=== PATIENT | male | born 1960 | race Hispanic/Latino ===

== ENCOUNTER 2019-04-12 11:01 | Inpatient (IN) | payer OTHER ==
[~2019-04-12] VITALS: Ht 152.4 cm; Wt 131.5 kg
[~2019-04-12 11:01] MED LIST: ASPI-555 PO; BISA5TAB12 PO; CARV12.511 PO; FURO-151 PO; INSU10VI3 SQ; LEVO25TA9 PO; LISI10TA7 PO; LORA10CA9 PO; TRAZ-185 PO; ZARO5 PO
[2019-04-12 11:31] LABS: BASOPHILS % (AUTO) 0.4 % (0.0-5.0); EOSINOPHILS % (AUTO) 0.5 % (0.0-8.0); LYMPHOCYTES % (AUTO) 3.2 % (21.0-51.0); MEAN CORPUSCULAR HGB CONC 33.9 g/dL (32.0-36.0); MEAN CORPUSCULAR VOLUME 88.6 fL (79-99); MONOCYTES % (AUTO) 5.6 % (3.0-13.0); NEUTROPHILS % (AUTO) 90.3 % (40.0-77.0); NUCLEATED RED BLOOD CELLS 0.1 % (0.0-0.19); PLATELET COUNT (AUTO) 251 K/uL (130-400); RED BLOOD CELL COUNT(AUTO) 3.16 MIL/uL (4.50-6.20); RED CELL DISTRIBUTION WIDTH 16.1 % (11.0-15.5); WHITE BLOOD COUNT (AUTO) 10.5 K/uL (4.8-10.8)
[2019-04-12] MEDS ORDERED: LACTATED RINGERS 1000ML 1,000 ML IV ONE (11:32)
[2019-04-12] MEDS ORDERED: ZOSYN 3.375GM+NS 50ML 50 ML IV ONE (11:32)
[2019-04-12 11:47] LABS: ALBUMIN 3.1 g/dL (3.5-5.0); BILIRUBIN,TOTAL 0.6 mg/dL (0.2-1.0); CREATININE 2.2 mg/dL (0.5-1.5); TOTAL PROTEIN, SERUM 8.3 g/dL (6.0-8.3)
[2019-04-12 11:48] LABS: POTASSIUM 6.1 mmol/L (3.5-5.1)
[2019-04-12 11:59] LABS: APPEARANCE,URINE Clear (CLEAR); BILIRUBIN,URINE Negative (NEGATIVE); COLOR,URINE Yellow (YELLOW); GLUCOSE, URINE (UA) 250 mg/dL (NEGATIVE); KETONES,URINE Negative (NEGATIVE); LEUKOCYTE ESTERASE ,URINE Trace (NEGATIVE); NITRATE,URINE Negative (NEGATIVE); OCCULT BLOOD,URINE Trace (NEGATIVE); PH,URINE 5.5 (5.0-8.0); PROTEIN,URINE >=1000 mg/dL (NEGATIVE); UROBILINOGEN,URINE 0.2 mg/dL (0.2-1.0)
[2019-04-12 12:10] LABS: PARTIAL THROMBOPLASTIN TIME 28.5 SEC (26.3-35.5); PROTHROMBIN TIME 10.5 SEC (9.6-11.6)
[2019-04-12 12:14] LABS: RBC,URINE 0-1 /HPF (0-1)
[2019-04-12 12:15] LABS: BACTERIA,URINE Few /HPF (None Seen)
[2019-04-12 12:16] LABS: SQUAMOUS EPITHELIAL CELL,UR 0-2 /HPF (0-2)
[2019-04-12 12:24] LABS: CREATINE KINASE, TOTAL 89 U/L (21-232); MYOGLOBIN 95 ng/mL (10-92); TROPONIN I < 0.04 ng/mL (0.00-0.06)
[2019-04-12] MEDS ORDERED: ONDANSETRON HCL 4 MG/2 ML VIAL IV PRN (15:00)
[2019-04-12] MEDS ORDERED: LACTULOSE 20 GM/30 ML UDCUP PO PRN (15:00)
[2019-04-12] MEDS ORDERED: ACETAMINOPHEN 325 MG TAB PO PRN (15:00)
[2019-04-12] MEDS ORDERED: SODIUM POLYSTYRENE SULFONATE 15 GM/60 ML ML ONE (15:20)
[2019-04-12] MEDS ORDERED: VANCOMYCIN PROTOCOL PER PHARMACY IV PRN (16:00)
[2019-04-12] MEDS: INSULIN HUMULIN R 100 UNIT/ML 3ML SQ SCH ×2 (16:30→21:00)
[2019-04-12] MEDS ORDERED: VANCOMYCIN 2 GM in SODIUM CHLORIDE 0.9% 500ML 500 ML IV ONE (17:00)
[2019-04-12] MEDS ORDERED: SODIUM POLYSTYRENE SULFONATE 15 GM/60 ML ML RC ONE (17:50)
[2019-04-12 18:25] VITALS: BP 154/65
--- NOTE | 2019-04-12 19:22 | NUR ---
INFECTIOUS DISEASE Dr. Raphael was called and notified. Addendum: 04/12/19 at 2004 by SHELBY PHELPS RN RN Dr. Raphael was called and notified of consult.
--- NOTE | 2019-04-12 20:06 | NUR ---
WOUND CARE AND WOUND PICTURES Took pictures of wounds and in chart. Dressing change done as ordered; patient tolerated well. Minimal serous dressing to ulcers in soles.
--- NOTE | 2019-04-12 20:06 | NUR ---
PODIATRY CONSULT Dr. Martinez was called and notified of consult. Gave orders for wound care and stated he will see patient tomorrow.
[2019-04-12] MEDS ORDERED: SODIUM CHLORIDE 0.9% 500ML 500 ML IV ONE (20:28)
[2019-04-12] MEDS: ZOSYN 3.375GM+NS 50ML 50 ML IV SCH (20:43)
[2019-04-12] MEDS: INSULIN GLARGINE 100 UNITS/ML 10 ML VIAL SQ SCH (20:46)
[2019-04-12 20:50] VITALS: BP 145/59
[2019-04-12] MEDS: HYDROMORPHONE 1 MG/1 ML AMP IVP PRN (20:59)
[2019-04-12] MEDS ORDERED: FAMOTIDINE 20MG TAB 20 MG TAB PO SCH (21:00)
[2019-04-12] MEDS ORDERED: SODIUM POLYSTYRENE SULFONATE 15 GM/60 ML ML PO SCH (21:15)
[2019-04-12 22:37] LABS: CREATININE 2.1 mg/dL (0.5-1.5); POTASSIUM 4.9 mmol/L (3.5-5.1); TROPONIN I 0.18 ng/mL (0.00-0.06)
[2019-04-12 23:19] VITALS: BP 118/62
[2019-04-13 03:25] VITALS: BP 123/64
[2019-04-13 05:10] LABS: BASOPHILS % (AUTO) 0.6 % (0.0-5.0); EOSINOPHILS % (AUTO) 0.8 % (0.0-8.0); HEMATOCRIT 25.9 % (42-54); LYMPHOCYTES % (AUTO) 7.5 % (21.0-51.0); MEAN CORPUSCULAR HEMOGLOBIN 30.4 pg (27.0-33.0); MEAN CORPUSCULAR HGB CONC 34.3 g/dL (32.0-36.0); MEAN CORPUSCULAR VOLUME 88.7 fL (79-99); MONOCYTES % (AUTO) 9.4 % (3.0-13.0); NEUTROPHILS % (AUTO) 81.7 % (40.0-77.0); PLATELET COUNT (AUTO) 235 K/uL (130-400); RED BLOOD CELL COUNT(AUTO) 2.92 MIL/uL (4.50-6.20); RED CELL DISTRIBUTION WIDTH 16.6 % (11.0-15.5); WHITE BLOOD COUNT (AUTO) 6.6 K/uL (4.8-10.8)
[2019-04-13 05:21] LABS: CREATININE 2.2 mg/dL (0.5-1.5)
[2019-04-13] MEDS: VANCOMYCIN 500MG+NS 100ML 100 ML IV SCH ×2 (06:03→17:28)
[2019-04-13] MEDS: INSULIN HUMULIN R 100 UNIT/ML 3ML SQ SCH ×4 (06:04→22:35)
[2019-04-13] MEDS: INSULIN GLARGINE 100 UNITS/ML 10 ML VIAL SQ SCH ×2 (07:30→22:34)
[2019-04-13 08:00] VITALS: BP 139/80
[2019-04-13] MEDS ORDERED: FUROSEMIDE 40 MG TABLET PO SCH (09:00)
[2019-04-13] MEDS ORDERED: VANCOMYCIN PROTOCOL PER PHARMACY IV SCH (09:15)
[2019-04-13] MEDS: ZOSYN 3.375GM+NS 50ML 50 ML IV SCH ×3 (10:18→22:12)
[2019-04-13] MEDS: FAMOTIDINE 20MG TAB 20 MG TAB PO SCH (10:25)
[2019-04-13] MEDS: ENOXAPARIN SODIUM 30 MG/0.3 ML SQ SCH (10:26)
--- NOTE | 2019-04-13 11:00 | NUR ---
INITIAL MET W PT FOR DISCHARGE PLANNING- PT IS [place]OX[place], LIVES WITH SPOUSE WALLACE, HAS HAD WOUND TO FEET SINCE 2016 THAT HIS SPOUSE HAS BEEN LOOKING AFTER WITH THE HELP OF [facility], ETC. RECENTLY AT [facility] X SEVERAL WEEKS FOR ABX. PT STATES HAS LOST TOES AND DOES NOT WANT TO LOSE ANY MORE. PT HAS A CANE, WALKER AND WHEELCHAIR. DISPOSITION IS UNCERTAIN- WAITING ON IMAGING TO KNOW IF PT HAS OSTEOMYELITIS AND/OR NEEDS MORE SURGICAL DEBRIDEMENT. WILL FOLLOW UP . PT IS AGREEABLE TO GO TO ANY AFTERCARE RECOMMENDED, JUST WANTS HIS FEET TO HEAL UP Addendum: 04/14/19 at 2114 by MAYE HUDSON RN Amended: Links added.
[2019-04-13 11:53] VITALS: BP_SYST 139; BP_SYST 157; BP_DIAS 106; BP_DIAS 112
[2019-04-13 11:57] VITALS: BP 140/76
[2019-04-13] MEDS: CADEXOMER IODINE 40 GM GEL TP SCH ×2 (15:45→21:00)
[2019-04-13 16:00] VITALS: BP 152/76
[2019-04-13 20:00] VITALS: BP 138/86
[2019-04-13] MEDS ORDERED: TEMAZEPAM 7.5 MG CAPSULE PO ONE (21:54)
[2019-04-13] MEDS ORDERED: TEMAZEPAM 7.5 MG CAPSULE PO SCH (22:00)
[2019-04-14 00:01] VITALS: BP 148/88
[2019-04-14 04:00] VITALS: BP 141/90
[2019-04-14 05:08] LABS: BASOPHILS % (AUTO) 0.7 % (0.0-5.0); EOSINOPHILS % (AUTO) 4.6 % (0.0-8.0); HEMATOCRIT 24.6 % (42-54); LYMPHOCYTES % (AUTO) 15.6 % (21.0-51.0); MEAN CORPUSCULAR HEMOGLOBIN 30.3 pg (27.0-33.0); MEAN CORPUSCULAR VOLUME 89.2 fL (79-99); MONOCYTES % (AUTO) 12.8 % (3.0-13.0); NEUTROPHILS % (AUTO) 66.3 % (40.0-77.0); PLATELET COUNT (AUTO) 211 K/uL (130-400); RED BLOOD CELL COUNT(AUTO) 2.76 MIL/uL (4.50-6.20); RED CELL DISTRIBUTION WIDTH 16.3 % (11.0-15.5); WHITE BLOOD COUNT (AUTO) 5.1 K/uL (4.8-10.8)
[2019-04-14 05:19] LABS: CREATININE 2.2 mg/dL (0.5-1.5); POTASSIUM 4.4 mmol/L (3.5-5.1)
[2019-04-14] MEDS: VANCOMYCIN 500MG+NS 100ML 100 ML IV SCH ×2 (05:53→18:19)
[2019-04-14] MEDS: INSULIN HUMULIN R 100 UNIT/ML 3ML SQ SCH ×4 (06:40→21:00)
[2019-04-14 08:00] VITALS: BP 136/82
[2019-04-14] MEDS ORDERED: BISACODYL 5 MG TABLET.DR PO PRN (08:30)
[2019-04-14] MEDS ORDERED: FUROSEMIDE 10 MG/ML 2ML VIAL IV SCH (08:30)
[2019-04-14] MEDS: ASPIRIN 81 MG EC TAB PO SCH (08:50)
[2019-04-14] MEDS: LORATADINE 10 MG TABLET PO SCH (08:51)
[2019-04-14] MEDS: FUROSEMIDE 40 MG TABLET PO SCH ×2 (08:51→21:18)
[2019-04-14] MEDS: ENOXAPARIN SODIUM 30 MG/0.3 ML SQ SCH (08:55)
[2019-04-14] MEDS: ZOSYN 3.375GM+NS 50ML 50 ML IV SCH (08:57)
[2019-04-14] MEDS: CARVEDILOL 12.5 MG TABLET PO SCH ×2 (09:00→21:17)
[2019-04-14] MEDS: FAMOTIDINE 20MG TAB 20 MG TAB PO SCH (09:00)
[2019-04-14] MEDS: LISINOPRIL 10 MG TABLET PO SCH (09:00)
[2019-04-14] MEDS: INSULIN GLARGINE 100 UNITS/ML 10 ML VIAL SQ SCH ×2 (09:11→22:15)
--- NOTE | 2019-04-14 10:00 | NUR ---
WOUND CARE TO FEET RENDERED, IODOSORB APPLIED TO OPEN AREAS AND COVERED. NO DRAINAGE NOTED TO RT.FOOT AND SM AMT OF DISCHARGE CLEANED LT ONE WITH NS AND THEN APPLIED OINT.
[2019-04-14 12:00] VITALS: BP 130/79
[2019-04-14 16:00] VITALS: BP 151/85
[2019-04-14 20:00] VITALS: BP 140/82
[2019-04-14] MEDS ORDERED: TRAZODONE HCL 50 MG TAB PO SCH (21:00)
[2019-04-14] MEDS: HYDROMORPHONE 1 MG/1 ML AMP IVP PRN (21:18)
[2019-04-15] VITALS: BP 139/76
[2019-04-15] MEDS: HYDROMORPHONE 1 MG/1 ML AMP IVP PRN (03:12)
[2019-04-15 04:00] VITALS: BP 118/67
[2019-04-15] MEDS: VANCOMYCIN 500MG+NS 100ML 100 ML IV SCH (05:29)
[2019-04-15] MEDS: INSULIN HUMULIN R 100 UNIT/ML 3ML SQ SCH ×3 (05:47→16:28)
[2019-04-15] MEDS: INSULIN GLARGINE 100 UNITS/ML 10 ML VIAL SQ SCH (05:49)
[2019-04-15 06:01] LABS: BASOPHILS % (AUTO) 0.6 % (0.0-5.0); EOSINOPHILS % (AUTO) 4.5 % (0.0-8.0); HEMATOCRIT 25.7 % (42-54); LYMPHOCYTES % (AUTO) 18.4 % (21.0-51.0); MEAN CORPUSCULAR HEMOGLOBIN 29.6 pg (27.0-33.0); MEAN CORPUSCULAR HGB CONC 33.3 g/dL (32.0-36.0); MEAN CORPUSCULAR VOLUME 88.9 fL (79-99); MONOCYTES % (AUTO) 10.5 % (3.0-13.0); PLATELET COUNT (AUTO) 246 K/uL (130-400); RED BLOOD CELL COUNT(AUTO) 2.89 MIL/uL (4.50-6.20); WHITE BLOOD COUNT (AUTO) 4.7 K/uL (4.8-10.8)
[2019-04-15 06:12] LABS: CREATININE 2.2 mg/dL (0.5-1.5); POTASSIUM 4.8 mmol/L (3.5-5.1)
[2019-04-15] MEDS ORDERED: LEVOTHYROXINE 25 MCG TABLET PO SCH (08:00)
[2019-04-15 08:02] VITALS: BP 124/69
[2019-04-15] MEDS ORDERED: METOLAZONE 2.5 MG TABLET PO SCH (09:00)
[2019-04-15] MEDS: ZOSYN 3.375GM+NS 50ML 50 ML IV SCH (09:28)
[2019-04-15] MEDS: ASPIRIN 81 MG EC TAB PO SCH (09:30)
[2019-04-15] MEDS: FUROSEMIDE 40 MG TABLET PO SCH (09:32)
[2019-04-15] MEDS: CARVEDILOL 12.5 MG TABLET PO SCH (09:32)
[2019-04-15] MEDS: LORATADINE 10 MG TABLET PO SCH (09:33)
[2019-04-15] MEDS: FAMOTIDINE 20MG TAB 20 MG TAB PO SCH (09:33)
[2019-04-15] MEDS: LISINOPRIL 10 MG TABLET PO SCH (09:33)
[2019-04-15] MEDS: ENOXAPARIN SODIUM 30 MG/0.3 ML SQ SCH (09:35)
[2019-04-15 11:54] VITALS: BP 112/72
[2019-04-15 16:00] VITALS: BP 142/82
--- NOTE | 2019-04-15 18:42 | NUR ---
PT D/C HOME USING TEACH BACK TECHNIQUE RE; PLEASE FOLLOW UP WITH DR. PAIGE AT THE [facility] ON SATURDAY APRIL 20, 2019 @ 9:00AM. FOLLOW UP WITH DR. VALLEJO IN 1 WEEK. CALL TO SET UP AN APPOINTMENT AT [phone]. FOLLOW UP WITH DR. DASILVA, KEEP APPOINTMENT YOU ALREADY HAVE AND FOLLOW UP INSTRUCTED. FINISH FULL COURSE OF ANTIBIOTIC THERAPY TO PREVENT SUPER INFECTION. CHANGE DRESSINGS DAILY WITH IODOSORB OINTMENT TO BILATERAL FOOT ULCERS THEN COVER WITH 4X4 GAUZE AND KERLIX. IV OUT INTACT, NO BLEEDING, AAOX3, IN NO DISTRESS, AT BEDSIDE DID WOUNDCARE USING TEACH BACK METHOD. OVERALL FAMILY AND PATIENT APPEAR VERY KNOWLEDGEABLE RE; WOUND CARE AND DRESSING CHANGES. STATES THEY HAVE CARED FOR HIM ALL THIS MONTHS.
== END 2019-04-15 18:45 | disposition home or self-care (01) | DRG 872 ==
LOC: EDH 11:01 → EDHIP 14:49 → 3DH 17:44
PROVIDERS: ADMIT Internal Medicine; ATTEND Internal Medicine
DX: A41.9 Sepsis, unspecified organism (principal); L03.116 Cellulitis of left lower limb; I13.0 Hypertensive heart and chronic kidney disease with heart failure and stage 1 through stage 4 chronic kidney disease, or unspecified chronic kidney disease; I50.42 Chronic combined systolic (congestive) and diastolic (congestive) heart failure; N17.9 Acute kidney failure, unspecified; Z68.43 Body mass index [BMI] 50.0-59.9, adult; E11.621 Type 2 diabetes mellitus with foot ulcer; L97.529 Non-pressure chronic ulcer of other part of left foot with unspecified severity; N18.9 Chronic kidney disease, unspecified; E11.22 Type 2 diabetes mellitus with diabetic chronic kidney disease; E78.5 Hyperlipidemia, unspecified; E11.65 Type 2 diabetes mellitus with hyperglycemia; E11.21 Type 2 diabetes mellitus with diabetic nephropathy; E03.9 Hypothyroidism, unspecified; D64.9 Anemia, unspecified; E11.610 Type 2 diabetes mellitus with diabetic neuropathic arthropathy; E11.628 Type 2 diabetes mellitus with other skin complications; E66.01 Morbid (severe) obesity due to excess calories; G47.33 Obstructive sleep apnea (adult) (pediatric); L97.519 Non-pressure chronic ulcer of other part of right foot with unspecified severity; Z89.432 Acquired absence of left foot; Z79.899 Other long term (current) drug therapy
CPT/HCPCS: 36415; 71045; 73718; 80048; 80053; 80202; 81001; 82550; 82948; 83605; 83874; 84132; 84145; 84484; 85025; 85610; 85730; 87040; 87088; 87804; 93005; 93970; G0378; J1170; J1650; J1815; J1940; J2543; J3370; J7040; J7120

== ENCOUNTER 2019-11-06 05:39 | Inpatient (IN) | payer OTHER, MEDICARE ==
[~2019-11-06] VITALS: Ht 175.3 cm; Wt 127.1 kg
[~2019-11-06 05:39] MED LIST changes: +ATOR20TA65 PO; +ERGO500014 PO; +HYDR-3420 PO; +Isosorbide Mono 30MG Tab Sr PO
[2019-11-06] MEDS ORDERED: ASPIRIN 325MG EC TAB 325 MG TABLET.DR PO ONE (06:12)
[2019-11-06] MEDS ORDERED: FUROSEMIDE 10 MG/ML 4ML VIAL ONE (06:12)
[2019-11-06] MEDS ORDERED: NITROGLYCERIN 1GM/1 INCH PACKET TD ONE (06:13)
[2019-11-06 06:17] LABS: BASOPHILS % (AUTO) 0.4 % (0.0-5.0); HEMATOCRIT 30.7 % (42-54); LYMPHOCYTES % (AUTO) 23.6 % (21.0-51.0); MEAN CORPUSCULAR HEMOGLOBIN 27.9 pg (27.0-33.0); MEAN CORPUSCULAR HGB CONC 31.9 g/dL (32.0-36.0); MEAN CORPUSCULAR VOLUME 87.5 fL (79-99); MONOCYTES % (AUTO) 9.5 % (3.0-13.0); NEUTROPHILS % (AUTO) 59.2 % (40.0-77.0); PLATELET COUNT (AUTO) 239 K/uL (130-400); RED BLOOD CELL COUNT(AUTO) 3.51 MIL/uL (4.50-6.20); RED CELL DISTRIBUTION WIDTH 12.7 % (11.0-15.5)
[2019-11-06 06:18] LABS: APPEARANCE,URINE Clear (CLEAR); BILIRUBIN,URINE Negative (NEGATIVE); COLOR,URINE Yellow (YELLOW); GLUCOSE, URINE (UA) Negative (NEGATIVE); KETONES,URINE Negative (NEGATIVE); LEUKOCYTE ESTERASE ,URINE Trace (NEGATIVE); NITRATE,URINE Negative (NEGATIVE); OCCULT BLOOD,URINE Negative (NEGATIVE); PROTEIN,URINE POS 2+ mg/dL (NEGATIVE)
[2019-11-06 06:26] LABS: RBC,URINE 0-1 /HPF (0-1)
[2019-11-06 06:27] LABS: BACTERIA,URINE Few /HPF (None Seen)
[2019-11-06 06:29] LABS: CREATININE 2.3 mg/dL (0.5-1.5); POTASSIUM 5.1 mmol/L (3.5-5.1)
[2019-11-06 06:32] LABS: INR 0.99 (0.85-1.15); PARTIAL THROMBOPLASTIN TIME 27.3 SEC (26.3-35.5); PROTHROMBIN TIME 10.7 SEC (9.6-11.6)
[2019-11-06 06:35] LABS: ALBUMIN 3.2 g/dL (3.5-5.0); BILIRUBIN,TOTAL 0.2 mg/dL (0.2-1.0); TOTAL PROTEIN, SERUM 8.3 g/dL (6.0-8.3)
[2019-11-06] MEDS ORDERED: SODIUM CHLORIDE 0.9% 1000ML 1,000 ML IV SCH (07:15)
[2019-11-06] MEDS: INSULIN R PO SS1 SQ SCH ×4 (07:30→21:05)
[2019-11-06] MEDS ORDERED: GLUCAGON 1MG KIT 1 MG ML IM PRN (07:30)
[2019-11-06] MEDS ORDERED: DEXTROSE 50%-WATER 50 ML DISP.SYRIN IV PRN (07:30)
[2019-11-06 07:49] LABS: B-TYPE NATRIURETIC PEPTIDE 1420 pg/mL (0-100)
[2019-11-06] MEDS: FUROSEMIDE 10 MG/ML 4ML VIAL IVP SCH ×2 (07:50→20:39)
[2019-11-06 08:15] VITALS: BP 150/77
[2019-11-06] MEDS ORDERED: FAMO40TA7 PO (08:23)
[2019-11-06] MEDS ORDERED: [UNRECOGNIZED DRUG - CODE] PO (08:23)
[2019-11-06 11:00] VITALS: BP 121/66
--- NOTE | 2019-11-06 14:41 | NUR ---
INITAL MET W PATIENT AT BEDSIDE, STATFaustina LIVES WITH SPOUSE VESTA IVORY, WHO WILL [facility] TRANSPORT HOME. USES A CANE, A WLKER AND A WHEELCHAIR; STATES HAS PROVIDER SERVICES 20+ HRS/WK; LAST SAW PMD IN JULY, FOLLOW UP APPT SCHEDULED FOR AM. Addendum: 11/06/19 at 1443 by MAYE HUDSON RN CM Amended: Links added.
[2019-11-06 15:30] VITALS: BP 136/80
[2019-11-06] MEDS: ACETAMINOPHEN 325 MG TAB PO PRN (17:53)
[2019-11-06] MEDS ORDERED: NITROGLYCERIN 0.4 MG SL TAB SL PRN (18:00)
[2019-11-06] MEDS ORDERED: BISACODYL 5 MG TABLET.DR PO PRN (18:00)
[2019-11-06] MEDS ORDERED: LACTULOSE 20 GM/30 ML UDCUP PO PRN (18:00)
[2019-11-06] MEDS ORDERED: ONDANSETRON HCL 4 MG/2 ML VIAL IV PRN (18:00)
[2019-11-06] MEDS ORDERED: ACETAMINOPHEN 325 MG TAB PO PRN (18:00)
[2019-11-06] MEDS ORDERED: PHARMACY COMMUNICATION MISC SCH (18:15)
[2019-11-06 19:54] VITALS: BP 137/80
[2019-11-06] MEDS: TRAZODONE HCL 50 MG TAB PO SCH (20:38)
[2019-11-06] MEDS: CARVEDILOL 12.5 MG TABLET PO SCH (20:40)
[2019-11-06] MEDS ORDERED: CARVEDILOL 12.5 MG TABLET PO SCH (21:00)
[2019-11-06 23:39] VITALS: BP 116/69
[2019-11-07] VITALS (7 sets, daily range): BP systolic 115–139; BP diastolic 61–85
[2019-11-07 04:10] LABS: BASOPHILS % (AUTO) 0.5 % (0.0-5.0); EOSINOPHILS % (AUTO) 6.1 % (0.0-8.0); HEMATOCRIT 29.2 % (42-54); LYMPHOCYTES % (AUTO) 23.7 % (21.0-51.0); MEAN CORPUSCULAR HEMOGLOBIN 27.8 pg (27.0-33.0); MEAN CORPUSCULAR HGB CONC 31.8 g/dL (32.0-36.0); MEAN CORPUSCULAR VOLUME 87.4 fL (79-99); MONOCYTES % (AUTO) 10.5 % (3.0-13.0); NEUTROPHILS % (AUTO) 58.9 % (40.0-77.0); PLATELET COUNT (AUTO) 225 K/uL (130-400); RED BLOOD CELL COUNT(AUTO) 3.34 MIL/uL (4.50-6.20); RED CELL DISTRIBUTION WIDTH 12.4 % (11.0-15.5); WHITE BLOOD COUNT (AUTO) 5.7 K/uL (4.8-10.8)
[2019-11-07 04:27] LABS: INR 1.02 (0.85-1.15); PARTIAL THROMBOPLASTIN TIME 28.2 SEC (26.3-35.5)
[2019-11-07 04:35] LABS: ALBUMIN 2.9 g/dL (3.5-5.0); BILIRUBIN,TOTAL 0.3 mg/dL (0.2-1.0); CREATININE 2.3 mg/dL (0.5-1.5); POTASSIUM 4.9 mmol/L (3.5-5.1); TOTAL PROTEIN, SERUM 7.6 g/dL (6.0-8.3)
[2019-11-07] MEDS: INSULIN R PO SS1 SQ SCH ×4 (05:40→20:29)
[2019-11-07] MEDS: LEVOTHYROXINE 25 MCG TABLET PO SCH (05:40)
[2019-11-07] MEDS: INSULIN HUMULIN 70/30 100 UNIT/ML 3ML SQ SCH (08:18)
[2019-11-07] MEDS ORDERED: LISINOPRIL 10 MG TABLET PO SCH (09:00)
[2019-11-07] MEDS: ENOXAPARIN SODIUM 30 MG/0.3 ML SQ SCH (09:02)
[2019-11-07] MEDS: FAMOTIDINE 20MG TAB 20 MG TAB PO SCH (09:03)
[2019-11-07] MEDS: METOLAZONE 2.5 MG TABLET PO SCH (09:03)
[2019-11-07] MEDS: ATORVASTATIN CALCIUM 20 MG TABLET PO SCH (09:03)
[2019-11-07] MEDS: ASPIRIN 81 MG EC TAB PO SCH (09:03)
[2019-11-07] MEDS: FUROSEMIDE 10 MG/ML 4ML VIAL IVP SCH ×2 (09:03→20:31)
[2019-11-07] MEDS: LORATADINE 10 MG TABLET PO SCH (09:04)
[2019-11-07] MEDS: CARVEDILOL 12.5 MG TABLET PO SCH ×2 (09:04→20:30)
[2019-11-07] MEDS: LOSARTAN 50 MG TABLET PO SCH (09:04)
--- NOTE | 2019-11-07 10:56 | NUR ---
WOUND CARE PICTURES TAKEN AND WOUND CARE PREFORMED ON BOTH RIGHT AND LEFT PALM OF FEET, CLEANSED WITH STERILE WATER AND THEN BETADINE CAST PLACED , COVERED WITH 4X4 GAUZES THEN TAPED SECURELY. PICTURES TAKEN. DRESSING CHANGES BID.
--- NOTE | 2019-11-07 17:14 | NUR ---
1288 PATIENT SIGNED PARK LETTER, I FAXED PARK LETTER TO [phone] AND PLACED IN CHART UNDER CONSENT TAB.
[2019-11-07] MEDS: TRAZODONE HCL 50 MG TAB PO SCH (20:30)
--- NOTE | 2019-11-07 20:30 | NUR ---
MEDS SHIFT ASSESSMENT DONE, PLEASE REFER TO CHART. DUE MEDS ADMINISTERED, TOLERATED WELL. DRESSING CHANGED ON FEET. CLEANSED FEET ULCER WITH SALINE, PAT DRY, APPLIED MEDIHONEY THEN COVERED WITH GAUZE AND SECURED WITH TAPE. PT REFUSED KERLIX AROUND FEET. SCD'S RE-APPLIED TO BLE. KEPT RESTED AND COMFORTABLE WITH HOB ELEVATED. CALL LIGHT WITHIN REACH. WILL MONITOR PT. Addendum: 11/08/19 at 0017 by SEAN LANDIS RN RN Amended: Links added.
[2019-11-07] MEDS: HONEY 1 APPL/ML TUBE TP SCH (20:31)
--- NOTE | 2019-11-08 02:00 | NUR ---
ROUNDS PT RESTING WELL, FAIRLY ASLEEP. NO DISTRESS NOTED. KEPT RESTED AND COMFORTABLE IN BED. CALL LIGHT WITHIN REACH. WILL MONITOR PT.
[2019-11-08 04:00] VITALS: BP 147/52
[2019-11-08 04:46] LABS: BASOPHILS % (AUTO) 0.5 % (0.0-5.0); HEMATOCRIT 32.1 % (42-54); MEAN CORPUSCULAR HEMOGLOBIN 27.6 pg (27.0-33.0); MEAN CORPUSCULAR HGB CONC 31.2 g/dL (32.0-36.0); MEAN CORPUSCULAR VOLUME 88.7 fL (79-99); MONOCYTES % (AUTO) 9.7 % (3.0-13.0); NEUTROPHILS % (AUTO) 62.5 % (40.0-77.0); PLATELET COUNT (AUTO) 241 K/uL (130-400); RED BLOOD CELL COUNT(AUTO) 3.62 MIL/uL (4.50-6.20); RED CELL DISTRIBUTION WIDTH 12.4 % (11.0-15.5); WHITE BLOOD COUNT (AUTO) 6.4 K/uL (4.8-10.8)
[2019-11-08 05:06] LABS: BILIRUBIN,TOTAL 0.3 mg/dL (0.2-1.0); CREATININE 2.6 mg/dL (0.5-1.5); POTASSIUM 5.3 mmol/L (3.5-5.1)
[2019-11-08] MEDS: LEVOTHYROXINE 25 MCG TABLET PO SCH (05:56)
--- NOTE | 2019-11-08 05:56 | NUR ---
MEDS AWAKENED PT FOR DUE MEDS. DENIES ANY CONCERNS AT THIS TIME. MEDICATED, TOLERATED WELL. FOR MORE CARE.
[2019-11-08] MEDS: INSULIN R PO SS1 SQ SCH ×4 (06:13→23:46)
[2019-11-08 07:28] VITALS: BP 119/72
[2019-11-08] MEDS: INSULIN HUMULIN 70/30 100 UNIT/ML 3ML SQ SCH (08:01)
[2019-11-08] MEDS: HONEY 1 APPL/ML TUBE TP SCH ×2 (09:00→21:00)
[2019-11-08] MEDS: ENOXAPARIN SODIUM 30 MG/0.3 ML SQ SCH (09:00)
--- NOTE | 2019-11-08 09:06 | NUR ---
PLAN OF CARE discussed with dr. Brown's PA and with RN Advised that AICD will be done tomorrow. Cannot be done today because patient is still orthopnic, cannot lie flat for procedure Vital signs reviewed, O2 sats are revieal on room air as > 95% Discussion with RN and CUSTOMS ENTRY WRITER- RN states patient has O2 off and on, uses when lying down. Asked for vital signs to be added to reflect oxygen use. PA lucien Brown states cannot go home and come back to have AICD because will need diuresis piror to procedure- out patient scheduled AICD not appropriate. call to Karen Case manage to advise of same. AICD for tomorrow Asked Addendum: 11/08/19 at 0910 by MAYE HUDSON RN Amended: Links added.
[2019-11-08] MEDS: LORATADINE 10 MG TABLET PO SCH (09:53)
[2019-11-08] MEDS: ASPIRIN 81 MG EC TAB PO SCH (09:53)
[2019-11-08] MEDS: FAMOTIDINE 20MG TAB 20 MG TAB PO SCH (09:53)
[2019-11-08] MEDS: LOSARTAN 50 MG TABLET PO SCH (09:54)
[2019-11-08] MEDS: CARVEDILOL 12.5 MG TABLET PO SCH ×2 (09:54→22:07)
[2019-11-08] MEDS: ATORVASTATIN CALCIUM 20 MG TABLET PO SCH (09:54)
[2019-11-08] MEDS: FUROSEMIDE 10 MG/ML 4ML VIAL IVP SCH ×2 (09:55→22:07)
[2019-11-08 10:47] VITALS: BP 104/66
--- NOTE | 2019-11-08 15:25 | NUR ---
1030 patient signed IM Letter, I faxed IM Letter to [phone] and placed in chart under consent tab.
[2019-11-08 15:40] VITALS: BP 113/62
[2019-11-08 19:41] VITALS: BP 112/55
[2019-11-08] MEDS: TRAZODONE HCL 50 MG TAB PO SCH (22:08)
[2019-11-08 23:27] VITALS: BP 109/60
[2019-11-09 03:23] VITALS: BP 110/69
[2019-11-09 04:18] LABS: BASOPHILS % (AUTO) 0.5 % (0.0-5.0); EOSINOPHILS % (AUTO) 5.2 % (0.0-8.0); HEMATOCRIT 30.5 % (42-54); LYMPHOCYTES % (AUTO) 18.2 % (21.0-51.0); MEAN CORPUSCULAR HEMOGLOBIN 28.1 pg (27.0-33.0); MEAN CORPUSCULAR HGB CONC 32.1 g/dL (32.0-36.0); MEAN CORPUSCULAR VOLUME 87.4 fL (79-99); MONOCYTES % (AUTO) 11.5 % (3.0-13.0); NEUTROPHILS % (AUTO) 64.3 % (40.0-77.0); PLATELET COUNT (AUTO) 235 K/uL (130-400); RED BLOOD CELL COUNT(AUTO) 3.49 MIL/uL (4.50-6.20); RED CELL DISTRIBUTION WIDTH 12.4 % (11.0-15.5); WHITE BLOOD COUNT (AUTO) 6.6 K/uL (4.8-10.8)
[2019-11-09 04:35] LABS: ALBUMIN 2.9 g/dL (3.5-5.0); BILIRUBIN,TOTAL 0.2 mg/dL (0.2-1.0); CREATININE 2.9 mg/dL (0.5-1.5); POTASSIUM 5.1 mmol/L (3.5-5.1); TOTAL PROTEIN, SERUM 7.7 g/dL (6.0-8.3)
[2019-11-09] MEDS: LEVOTHYROXINE 25 MCG TABLET PO SCH (06:26)
[2019-11-09] MEDS: INSULIN R PO SS1 SQ SCH ×4 (06:26→20:54)
[2019-11-09 07:48] VITALS: BP 124/75
[2019-11-09] MEDS: ASPIRIN 81 MG EC TAB PO SCH (09:52)
[2019-11-09] MEDS: ATORVASTATIN CALCIUM 20 MG TABLET PO SCH (09:52)
[2019-11-09] MEDS: LORATADINE 10 MG TABLET PO SCH (09:53)
[2019-11-09] MEDS: LOSARTAN 50 MG TABLET PO SCH (09:53)
[2019-11-09] MEDS: FAMOTIDINE 20MG TAB 20 MG TAB PO SCH (09:53)
[2019-11-09] MEDS: CARVEDILOL 12.5 MG TABLET PO SCH ×2 (09:53→20:54)
[2019-11-09] MEDS: ENOXAPARIN SODIUM 30 MG/0.3 ML SQ SCH (09:54)
[2019-11-09] MEDS: MILRINONE-D5W 20 MG/100 ML 100 ML IV SCH ×2 (10:24→21:52)
[2019-11-09] MEDS: HONEY 1 APPL/ML TUBE TP SCH ×2 (10:27→20:55)
[2019-11-09] MEDS: INSULIN HUMULIN 70/30 100 UNIT/ML 3ML SQ SCH (10:32)
[2019-11-09] MEDS ORDERED: VANCOMYCIN 1GM+NS 250ML 250 ML IV PRN (11:15)
[2019-11-09 11:16] VITALS: BP 130/74
[2019-11-09 15:30] VITALS: BP 97/66
[2019-11-09 20:00] VITALS: BP 94/58
[2019-11-09] MEDS: TRAZODONE HCL 50 MG TAB PO SCH (20:54)
[2019-11-10] VITALS (7 sets, daily range): BP systolic 82–131; BP diastolic 50–86
[2019-11-10 04:32] LABS: HEMATOCRIT 29.1 % (42-54); MEAN CORPUSCULAR HEMOGLOBIN 27.5 pg (27.0-33.0); MEAN CORPUSCULAR HGB CONC 31.6 g/dL (32.0-36.0); MEAN CORPUSCULAR VOLUME 86.9 fL (79-99); RED BLOOD CELL COUNT(AUTO) 3.35 MIL/uL (4.50-6.20); RED CELL DISTRIBUTION WIDTH 12.3 % (11.0-15.5); WHITE BLOOD COUNT (AUTO) 6.3 K/uL (4.8-10.8)
[2019-11-10 04:57] LABS: CREATININE 3.5 mg/dL (0.5-1.5)
[2019-11-10] MEDS: LEVOTHYROXINE 25 MCG TABLET PO SCH (05:17)
[2019-11-10] MEDS: INSULIN HUMULIN 70/30 100 UNIT/ML 3ML SQ SCH ×2 (06:56→16:41)
[2019-11-10] MEDS: INSULIN R PO SS1 SQ SCH ×4 (06:56→20:53)
[2019-11-10] MEDS: LOSARTAN 50 MG TABLET PO SCH (09:00)
[2019-11-10] MEDS: LORATADINE 10 MG TABLET PO SCH (11:16)
[2019-11-10] MEDS: HONEY 1 APPL/ML TUBE TP SCH ×2 (11:17→20:53)
[2019-11-10] MEDS: ACETAMINOPHEN 325 MG TAB PO PRN (11:34)
--- NOTE | 2019-11-10 13:30 | NUR ---
[facility] CONSULT CONSULT FOR WOUND CARE CALLED IN; SPOKE TO SANDHYA, INFORMATION GIVEN
[2019-11-10] MEDS: ASPIRIN 81 MG EC TAB PO SCH (14:06)
[2019-11-10] MEDS: ATORVASTATIN CALCIUM 20 MG TABLET PO SCH (14:07)
[2019-11-10] MEDS: CARVEDILOL 12.5 MG TABLET PO SCH ×2 (14:07→20:52)
--- NOTE | 2019-11-10 15:30 | NUR ---
LIFE VEST CM AWARE OF DR SMITH REQUESTING FOR PT TO OBTAIN LIFE VEST PRIOR TO DISCHARGE.
[2019-11-10] MEDS: MILRINONE-D5W 20 MG/100 ML 100 ML IV SCH (18:42)
[2019-11-10] MEDS: TRAZODONE HCL 50 MG TAB PO SCH (20:52)
[2019-11-11 03:59] VITALS: BP 94/52
[2019-11-11] MEDS: MILRINONE-D5W 20 MG/100 ML 100 ML IV SCH ×2 (05:31→16:55)
[2019-11-11] MEDS: LEVOTHYROXINE 25 MCG TABLET PO SCH (05:32)
[2019-11-11 05:34] LABS: BASOPHILS % (AUTO) 0.4 % (0.0-5.0); EOSINOPHILS % (AUTO) 4.9 % (0.0-8.0); LYMPHOCYTES % (AUTO) 17.1 % (21.0-51.0); MEAN CORPUSCULAR HEMOGLOBIN 27.9 pg (27.0-33.0); MEAN CORPUSCULAR HGB CONC 32.1 g/dL (32.0-36.0); MEAN CORPUSCULAR VOLUME 87.1 fL (79-99); MONOCYTES % (AUTO) 10.6 % (3.0-13.0); NEUTROPHILS % (AUTO) 66.6 % (40.0-77.0); PLATELET COUNT (AUTO) 236 K/uL (130-400); RED BLOOD CELL COUNT(AUTO) 3.33 MIL/uL (4.50-6.20); RED CELL DISTRIBUTION WIDTH 12.5 % (11.0-15.5)
[2019-11-11 05:47] LABS: CREATININE 3.3 mg/dL (0.5-1.5); POTASSIUM 5.1 mmol/L (3.5-5.1)
[2019-11-11] MEDS: INSULIN R PO SS1 SQ SCH ×4 (06:45→20:07)
[2019-11-11 07:00] VITALS: BP 124/72
[2019-11-11] MEDS: ASPIRIN 81 MG EC TAB PO SCH (08:17)
[2019-11-11] MEDS: CARVEDILOL 12.5 MG TABLET PO SCH ×2 (08:19→20:09)
[2019-11-11] MEDS: ATORVASTATIN CALCIUM 20 MG TABLET PO SCH (08:19)
[2019-11-11] MEDS: FAMOTIDINE 20MG TAB 20 MG TAB PO SCH (08:20)
[2019-11-11] MEDS: INSULIN HUMULIN 70/30 100 UNIT/ML 3ML SQ SCH ×2 (08:26→16:41)
--- NOTE | 2019-11-11 08:46 | NUR ---
BILATERAL FOOT DRESSING CHANGED USING CLEAN TECHNIQUE AND NS MEDIHONEY, 4X4'S AND TAPE. TOLERATED WELL NO PAIN.
[2019-11-11] MEDS: HONEY 1 APPL/ML TUBE TP SCH ×2 (08:48→20:09)
[2019-11-11 11:00] VITALS: BP 119/66
[2019-11-11 16:00] VITALS: BP 115/68
[2019-11-11 19:38] VITALS: BP 132/88
[2019-11-11] MEDS: TRAZODONE HCL 50 MG TAB PO SCH (20:09)
[2019-11-11 23:45] VITALS: BP 118/74
[2019-11-12] MEDS: MILRINONE-D5W 20 MG/100 ML 100 ML IV SCH (02:37)
[2019-11-12 03:47] LABS: BASOPHILS % (AUTO) 0.3 % (0.0-5.0); EOSINOPHILS % (AUTO) 4.3 % (0.0-8.0); LYMPHOCYTES % (AUTO) 22.6 % (21.0-51.0); MEAN CORPUSCULAR HEMOGLOBIN 28.3 pg (27.0-33.0); MEAN CORPUSCULAR HGB CONC 32.4 g/dL (32.0-36.0); MEAN CORPUSCULAR VOLUME 87.3 fL (79-99); MONOCYTES % (AUTO) 10.9 % (3.0-13.0); NEUTROPHILS % (AUTO) 61.7 % (40.0-77.0); PLATELET COUNT (AUTO) 239 K/uL (130-400); RED BLOOD CELL COUNT(AUTO) 3.32 MIL/uL (4.50-6.20); RED CELL DISTRIBUTION WIDTH 12.3 % (11.0-15.5); WHITE BLOOD COUNT (AUTO) 6.2 K/uL (4.8-10.8)
[2019-11-12 03:59] VITALS: BP 99/60
[2019-11-12 04:02] LABS: CREATININE 3.1 mg/dL (0.5-1.5); POTASSIUM 4.9 mmol/L (3.5-5.1)
[2019-11-12] MEDS: LEVOTHYROXINE 25 MCG TABLET PO SCH (06:24)
[2019-11-12] MEDS: INSULIN R PO SS1 SQ SCH ×3 (06:38→20:45)
--- NOTE | 2019-11-12 07:01 | NUR ---
feliciano asked will, day shift nurses aide , if he could please reweigh patient using the standing scale
[2019-11-12 07:53] VITALS: BP 146/84
[2019-11-12] MEDS: ASPIRIN 81 MG EC TAB PO SCH (08:23)
[2019-11-12] MEDS: CARVEDILOL 12.5 MG TABLET PO SCH ×2 (08:24→20:56)
[2019-11-12] MEDS: ATORVASTATIN CALCIUM 20 MG TABLET PO SCH (08:24)
[2019-11-12] MEDS: FAMOTIDINE 20MG TAB 20 MG TAB PO SCH (08:24)
[2019-11-12] MEDS: FUROSEMIDE 40 MG TABLET PO SCH ×2 (08:29→17:25)
--- NOTE | 2019-11-12 08:59 | NUR ---
cm note call made to [employer] with [employer] life vest, and states pt is approved for life vest, anticipates delivery sometime this afternoon. updated primary nurse.
[2019-11-12] MEDS: METOLAZONE 2.5 MG TABLET PO SCH (09:00)
[2019-11-12] MEDS: HONEY 1 APPL/ML TUBE TP SCH ×2 (10:13→20:58)
[2019-11-12 11:53] VITALS: BP 126/77
[2019-11-12 16:00] VITALS: BP 138/71
[2019-11-12] MEDS: INSULIN HUMULIN 70/30 100 UNIT/ML 3ML SQ SCH ×2 (16:15→16:20)
[2019-11-12 20:05] VITALS: BP 141/78
[2019-11-12] MEDS: TRAZODONE HCL 50 MG TAB PO SCH (20:51)
[2019-11-12] MEDS: ACETAMINOPHEN 325 MG TAB PO PRN (20:58)
[2019-11-12 23:32] VITALS: BP 119/59
[2019-11-13 03:38] VITALS: BP 105/60
[2019-11-13 04:33] LABS: BASOPHILS % (AUTO) 0.4 % (0.0-5.0); EOSINOPHILS % (AUTO) 5.6 % (0.0-8.0); HEMATOCRIT 30.5 % (42-54); LYMPHOCYTES % (AUTO) 26.5 % (21.0-51.0); MEAN CORPUSCULAR HEMOGLOBIN 28.4 pg (27.0-33.0); MEAN CORPUSCULAR HGB CONC 32.5 g/dL (32.0-36.0); MEAN CORPUSCULAR VOLUME 87.6 fL (79-99); MONOCYTES % (AUTO) 11.2 % (3.0-13.0); NEUTROPHILS % (AUTO) 55.9 % (40.0-77.0); PLATELET COUNT (AUTO) 236 K/uL (130-400); RED BLOOD CELL COUNT(AUTO) 3.48 MIL/uL (4.50-6.20); RED CELL DISTRIBUTION WIDTH 12.3 % (11.0-15.5); WHITE BLOOD COUNT (AUTO) 5.6 K/uL (4.8-10.8)
[2019-11-13 04:52] LABS: CREATININE 2.7 mg/dL (0.5-1.5); POTASSIUM 4.8 mmol/L (3.5-5.1)
[2019-11-13] MEDS: LEVOTHYROXINE 25 MCG TABLET PO SCH (06:22)
[2019-11-13] MEDS: INSULIN R PO SS1 SQ SCH ×2 (06:23→11:28)
[2019-11-13 08:00] VITALS: BP 136/81
[2019-11-13] MEDS: INSULIN HUMULIN 70/30 100 UNIT/ML 3ML SQ SCH (08:00)
[2019-11-13] MEDS: METOLAZONE 2.5 MG TABLET PO SCH (09:00)
[2019-11-13] MEDS: ASPIRIN 81 MG EC TAB PO SCH (11:30)
[2019-11-13] MEDS: FUROSEMIDE 40 MG TABLET PO SCH (11:31)
[2019-11-13] MEDS: CARVEDILOL 12.5 MG TABLET PO SCH (11:31)
[2019-11-13] MEDS: ATORVASTATIN CALCIUM 20 MG TABLET PO SCH (11:31)
[2019-11-13] MEDS: FAMOTIDINE 20MG TAB 20 MG TAB PO SCH (11:31)
[2019-11-13] MEDS: HONEY 1 APPL/ML TUBE TP SCH (11:34)
[2019-11-13 11:41] VITALS: BP 130/73
--- NOTE | 2019-11-13 12:00 | NUR ---
[employer] DELIVERED [employer] LIFE INSURANCE AGENT DELIVERED LIFEVEST. [employer] LIFE INSURANCE AGENT PLACED LIFEVEST ON PATIENT AND EXPLAINED TO PATIENT CARE OF LIFE VEST AT HOME.
--- NOTE | 2019-11-13 12:15 | NUR ---
HOSPITALIST NOTIFIED Joe DESAI NP NOTIFIED LIFE VEST HAS BEEN DELIVERED TO PATIENT. Joe DESAI NP FOR HOSPITALIST REPLIED OK TO DISCHARGE PATIENT AND F/U WITH DR. GEMA SMITH RECOMMENDED.
--- NOTE | 2019-11-13 13:00 | NUR ---
DISCHARGE DISCHARGE TEACHING PROVIDED TO PATIENT REGARDING HOME CARE (CHF, CHEST PAIN, CAD) AND WHEN TOO SEEEK MEDICAL CARE. PATIENT VERBALIZED UNDERSTANDING. INFORMED PATIENT THAT FOLLOW-UP APPOINTMENT WITH DR. SMITH PENDING TO BE SCHEDULED. PATIENT REPLIED THAT DR. SMITH TOLD HIM TO COME INTO HIS OFFICE TOMORROW TO SEE HIM. I ADVISED PATIENT TO CALL AHEAD JUST IN CASE AND PATIENT AGREED. PATIENT STATES THAT DR. SMITH SPOKE TO HIM DURING THIS HOSPITALIZATION AND EXPLAINED PLAN OF CARE AND IMPORTANCE TO F/U WITH DR. SMITH AN OUTPATIENT. REMOVED 22G IV FROM RIGHT FA, CATHETER TIP INTACT. LEFT FOOT PLANTAR WOUND AND RIGHT FOOT PLANTAR WOUND PICTURES TAKEN PRIOR TO DISCHARGE.
== END 2019-11-13 13:15 | disposition home or self-care (01) | DRG 291 ==
LOC: EDH 05:39 → OBSVTOIN 07:03 → INTOOBSV 07:03 → EDHIP 07:03 → 4BH 08:21
PROVIDERS: ADMIT Hospitalist; ATTEND Hospitalist
DX: I13.0 Hypertensive heart and chronic kidney disease with heart failure and stage 1 through stage 4 chronic kidney disease, or unspecified chronic kidney disease (principal); I50.23 Acute on chronic systolic (congestive) heart failure; I45.2 Bifascicular block; Z68.41 Body mass index [BMI] 40.0-44.9, adult; N17.9 Acute kidney failure, unspecified; N18.4 Chronic kidney disease, stage 4 (severe); I31.4 Cardiac tamponade; I42.0 Dilated cardiomyopathy; E66.01 Morbid (severe) obesity due to excess calories; G47.33 Obstructive sleep apnea (adult) (pediatric); E11.22 Type 2 diabetes mellitus with diabetic chronic kidney disease; E11.51 Type 2 diabetes mellitus with diabetic peripheral angiopathy without gangrene; E11.621 Type 2 diabetes mellitus with foot ulcer; I25.10 Atherosclerotic heart disease of native coronary artery without angina pectoris; I25.5 Ischemic cardiomyopathy; E78.5 Hyperlipidemia, unspecified; I45.10 Unspecified right bundle-branch block; I25.2 Old myocardial infarction; Z87.891 Personal history of nicotine dependence; Z89.411 Acquired absence of right great toe; Z89.429 Acquired absence of other toe(s), unspecified side; Z95.810 Presence of automatic (implantable) cardiac defibrillator; Z91.19 Patient's noncompliance with other medical treatment and regimen; Z91.14 Patient's other noncompliance with medication regimen; L89.629 Pressure ulcer of left heel, unspecified stage; L89.619 Pressure ulcer of right heel, unspecified stage
CPT/HCPCS: 36415; 71045; 80048; 80053; 81001; 82550; 82948; 83605; 83690; 83880; 84484; 85025; 85027; 85610; 85730; 93005; 93306; 93356; 99291; G0378; J1650; J1815; J1940; J2260

== ENCOUNTER 2019-12-29 22:10 | Inpatient (IN) | payer OTHER, MEDICARE ==
[~2019-12-29] VITALS: Ht 175.3 cm; Wt 120.8 kg
[~2019-12-29 22:10] MED LIST changes: -ASPI-555 PO; +ASPI-556 PO; -ERGO500014 PO; +FAMO40TA7 PO; -HYDR-3420 PO; -Isosorbide Mono 30MG Tab Sr PO; -LISI10TA7 PO; +[UNRECOGNIZED DRUG - CODE] PO
[2019-12-29 23:18] LABS: BASOPHILS % (AUTO) 0.3 % (0.0-5.0); HEMATOCRIT 28.3 % (42-54); MEAN CORPUSCULAR HEMOGLOBIN 28.4 pg (27.0-33.0); MEAN CORPUSCULAR HGB CONC 32.9 g/dL (32.0-36.0); MEAN CORPUSCULAR VOLUME 86.5 fL (79-99); MONOCYTES % (AUTO) 6.3 % (3.0-13.0); NEUTROPHILS % (AUTO) 84.5 % (40.0-77.0); PLATELET COUNT (AUTO) 347 K/uL (130-400); RED BLOOD CELL COUNT(AUTO) 3.27 MIL/uL (4.50-6.20); RED CELL DISTRIBUTION WIDTH 12.1 % (11.0-15.5); WHITE BLOOD COUNT (AUTO) 5.8 K/uL (4.8-10.8)
[2019-12-29] MEDS ORDERED: SODIUM CHLORIDE 0.9% 1000ML 1,000 ML IV ONE (23:18)
[2019-12-29] MEDS ORDERED: ACETAMINOPHEN EXTRA STRENGTH 500 MG TABLET ONE (23:19)
[2019-12-29 23:29] LABS: POTASSIUM 5.2 mmol/L (3.5-5.1)
[2019-12-29 23:40] LABS: ALBUMIN 2.8 g/dL (3.5-5.0); BILIRUBIN,TOTAL 0.3 mg/dL (0.2-1.0); TOTAL PROTEIN, SERUM 8.8 g/dL (6.0-8.3); TROPONIN I 0.1 ng/mL (0.00-0.06)
[2019-12-30] MEDS ORDERED: ORPHENADRINE CITRATE 30 MG/ML ML ONE (00:12)
[2019-12-30 00:54] LABS: INR 0.95 (0.85-1.15); PARTIAL THROMBOPLASTIN TIME 28.7 SEC (26.3-35.5); PROTHROMBIN TIME 10.3 SEC (9.6-11.6)
[2019-12-30] MEDS ORDERED: ONDANSETRON HCL 4 MG/2 ML VIAL ONE (01:36)
[2019-12-30] MEDS ORDERED: ASPIRIN 325 MG TABLET ONE (01:36)
[2019-12-30] MEDS ORDERED: HYDROCODONE/ACETAMINOPHEN 5/325 MG TAB ONE (01:37)
[2019-12-30] MEDS ORDERED: CEFTRIAXONE SODIUM 1 GM ONE ×2 (01:43→16:58)
[2019-12-30] MEDS ORDERED: AZITHROMYCIN 500MG+NS 250ML 250 ML IV ONE (01:43)
[2019-12-30] MEDS ORDERED: ONDANSETRON HCL 4 MG/2 ML VIAL IV PRN (03:00)
[2019-12-30] MEDS ORDERED: ZOLPIDEM TARTRATE 5 MG TAB PO PRN (03:00)
[2019-12-30] MEDS ORDERED: NITROGLYCERIN 0.4 MG SL TAB SL PRN (03:00)
[2019-12-30] MEDS ORDERED: GUAIFENESIN-DM 200/20 MG 10 ML PO PRN (03:00)
[2019-12-30] MEDS ORDERED: DEXTROSE 50%-WATER 50 ML DISP.SYRIN IV PRN ×2 (03:30→06:00)
[2019-12-30] MEDS ORDERED: GLUCAGON 1MG KIT 1 MG ML IM PRN ×2 (03:30→06:00)
[2019-12-30 03:34] LABS: BASOPHILS % (AUTO) 0.2 % (0.0-5.0); EOSINOPHILS % (AUTO) 0.1 % (0.0-8.0); HEMATOCRIT 27.2 % (42-54); LYMPHOCYTES % (AUTO) 5.9 % (21.0-51.0); MEAN CORPUSCULAR HEMOGLOBIN 28.2 pg (27.0-33.0); MONOCYTES % (AUTO) 12.3 % (3.0-13.0); NEUTROPHILS % (AUTO) 80.5 % (40.0-77.0); PLATELET COUNT (AUTO) 370 K/uL (130-400); RED BLOOD CELL COUNT(AUTO) 3.09 MIL/uL (4.50-6.20); RED CELL DISTRIBUTION WIDTH 12.4 % (11.0-15.5); WHITE BLOOD COUNT (AUTO) 10.8 K/uL (4.8-10.8)
[2019-12-30 03:49] LABS: ALBUMIN 2.6 g/dL (3.5-5.0); BILIRUBIN,TOTAL 0.2 mg/dL (0.2-1.0); CREATININE 3.2 mg/dL (0.5-1.5); TOTAL PROTEIN, SERUM 8.3 g/dL (6.0-8.3)
[2019-12-30 03:58] LABS: CRP QUANTITATIVE 182.5 mg/L (0.00-9.0)
[2019-12-30 05:14] LABS: HEMOGLOBIN A1C 12.1 % (4.0-6.0)
[2019-12-30] MEDS ORDERED: INSULIN HUMULIN R 100 UNIT/ML 3ML SQ SCH (07:30)
[2019-12-30] MEDS ORDERED: ASPIRIN 81MG TAB.CHEW ONE (08:36)
[2019-12-30] MEDS ORDERED: ERGOCALCIFEROL (VITAMIN D2) 50,000 UNIT CAPSULE ONE (08:37)
[2019-12-30] MEDS ORDERED: ASCORBIC ACID 500 MG TAB ONE (08:37)
[2019-12-30] MEDS ORDERED: ZINC SULFATE 220 CAPSULE ONE (08:37)
[2019-12-30] MEDS ORDERED: HEPARIN SODIUM 5000UNIT/ML 1ML VIAL ONE (08:38)
[2019-12-30] MEDS ORDERED: ERGOCALCIFEROL (VITAMIN D2) 50,000 UNIT CAPSULE PO ONE (09:00)
[2019-12-30 10:16] LABS: TROPONIN I 0.15 ng/mL (0.00-0.06)
--- NOTE | 2019-12-30 11:04 | NUR ---
DCP: HOME Sw spoke to pt who is on SSD, reports he lives at home with Lori Watt [phone]. Prior to admission, pt was able to complete ADLS, uses w/c and cane, needs walker and shower chair. Pt has no in home care services. PCP is [facility] and he uses [facility]. [place] Addendum: 12/30/19 at 1113 by LEEROY CHI Amended: Links added.
[2019-12-30] MEDS ORDERED: INSULIN HUMULIN R 100 UNIT/ML 3ML ONE ×2 (12:35→16:59)
[2019-12-30] MEDS: CEFTRIAXONE SODIUM 1 GM IVP SCH (13:00)
[2019-12-30] MEDS ORDERED: TRAMADOL HCL 50 MG TABLET ONE (13:11)
[2019-12-30] MEDS ORDERED: BISACODYL 5 MG TABLET.DR PO PRN (16:30)
[2019-12-30] MEDS ORDERED: SODIUM CHLORIDE 0.9% 50 ML IV ONE (17:01)
[2019-12-30] MEDS ORDERED: CARVEDILOL 12.5 MG TABLET PO ONE (20:37)
[2019-12-30] MEDS ORDERED: FUROSEMIDE 40 MG TABLET ONE (20:37)
[2019-12-30] MEDS ORDERED: TRAZODONE HCL 50 MG TAB ONE (20:38)
[2019-12-30] MEDS: INSULIN GLARGINE 100 UNITS/ML 10 ML VIAL SQ SCH (21:00)
[2019-12-30] MEDS: TRAZODONE HCL 50 MG TAB PO SCH (21:00)
[2019-12-31] MEDS ORDERED: AZITHROMYCIN 500MG+NS 250ML 250 ML IV SCH
[2019-12-31] MEDS ORDERED: ZOLPIDEM TARTRATE 5 MG TAB ONE ×2 (00:09→20:21)
[2019-12-31] MEDS ORDERED: TRAMADOL HCL 50 MG TABLET ONE ×2 (00:09→18:37)
[2019-12-31] MEDS: CEFTRIAXONE SODIUM 1 GM IVP SCH (01:00)
[2019-12-31] MEDS ORDERED: AZITHROMYCIN 500MG+NS 250ML 250 ML IV ONE (05:35)
[2019-12-31] MEDS ORDERED: CEFTRIAXONE SODIUM 1 GM ONE (05:35)
[2019-12-31] MEDS: LEVOTHYROXINE 25 MCG TABLET PO SCH (06:30)
[2019-12-31 06:39] LABS: BASOPHILS % (AUTO) 0.3 % (0.0-5.0); EOSINOPHILS % (AUTO) 0.7 % (0.0-8.0); HEMATOCRIT 27.4 % (42-54); LYMPHOCYTES % (AUTO) 13.1 % (21.0-51.0); MEAN CORPUSCULAR HEMOGLOBIN 27.8 pg (27.0-33.0); MEAN CORPUSCULAR HGB CONC 31.8 g/dL (32.0-36.0); MEAN CORPUSCULAR VOLUME 87.5 fL (79-99); MONOCYTES % (AUTO) 13.4 % (3.0-13.0); NEUTROPHILS % (AUTO) 71.8 % (40.0-77.0); PLATELET COUNT (AUTO) 341 K/uL (130-400); RED BLOOD CELL COUNT(AUTO) 3.13 MIL/uL (4.50-6.20); RED CELL DISTRIBUTION WIDTH 12.5 % (11.0-15.5); WHITE BLOOD COUNT (AUTO) 10.1 K/uL (4.8-10.8)
[2019-12-31 07:18] LABS: ALBUMIN 2.6 g/dL (3.5-5.0); BILIRUBIN,TOTAL 0.2 mg/dL (0.2-1.0); CREATININE 2.8 mg/dL (0.5-1.5); POTASSIUM 5.3 mmol/L (3.5-5.1); TOTAL PROTEIN, SERUM 8.3 g/dL (6.0-8.3)
[2019-12-31 07:37] LABS: CRP QUANTITATIVE 211.5 mg/L (0.00-9.0)
[2019-12-31] MEDS ORDERED: FAMOTIDINE 20MG TAB 20 MG TAB ONE ×2 (08:39→20:19)
[2019-12-31] MEDS ORDERED: ASPIRIN 81MG TAB.CHEW ONE (08:39)
[2019-12-31] MEDS ORDERED: METOLAZONE 2.5 MG TABLET ONE (08:40)
[2019-12-31] MEDS ORDERED: LEVOTHYROXINE 25 MCG TABLET ONE (08:40)
[2019-12-31] MEDS ORDERED: LORATADINE 10 MG TABLET ONE (08:41)
[2019-12-31] MEDS: LORATADINE 10 MG TABLET PO SCH (09:00)
[2019-12-31] MEDS: ZINC SULFATE 220 CAPSULE PO SCH (09:00)
[2019-12-31] MEDS ORDERED: FAMOTIDINE 20MG TAB 20 MG TAB PO SCH (09:00)
[2019-12-31] MEDS: ATORVASTATIN CALCIUM 20 MG TABLET PO SCH (09:00)
[2019-12-31] MEDS: METOLAZONE 2.5 MG TABLET PO SCH (09:00)
[2019-12-31] MEDS: ASPIRIN 81MG TAB.CHEW PO SCH (09:00)
[2019-12-31] MEDS: ASCORBIC ACID 500 MG TAB PO SCH (09:00)
[2019-12-31] MEDS: FAMOTIDINE 20MG TAB 20 MG TAB PO SCH (09:00)
[2019-12-31] MEDS: ASPIRIN 81 MG EC TAB PO SCH ×2 (09:00→23:58)
[2019-12-31] MEDS ORDERED: ATORVASTATIN CALCIUM 20 MG TABLET ONE (10:30)
[2019-12-31] MEDS ORDERED: ZOSYN 3.375GM+NS 50ML 50 ML IV ONE ×2 (12:55→20:19)
[2019-12-31] MEDS ORDERED: INSULIN HUMULIN R 100 UNIT/ML 3ML ONE ×2 (14:10→18:08)
[2019-12-31] MEDS ORDERED: CARVEDILOL 12.5 MG TABLET PO ONE (20:20)
[2019-12-31] MEDS ORDERED: TRAZODONE HCL 50 MG TAB ONE (20:20)
[2019-12-31] MEDS: FUROSEMIDE 40 MG TABLET PO SCH (21:00)
[2019-12-31] MEDS: HEPARIN SODIUM 5000UNIT/ML 1ML VIAL SQ SCH (21:00)
[2019-12-31] MEDS: TRAZODONE HCL 50 MG TAB PO SCH (21:00)
[2019-12-31] MEDS: CARVEDILOL 12.5 MG TABLET PO SCH (21:00)
[2019-12-31] MEDS: INSULIN HUMULIN R 100 UNIT/ML 3ML SQ SCH (21:00)
[2019-12-31] MEDS: INSULIN GLARGINE 100 UNITS/ML 10 ML VIAL SQ SCH (21:00)
[2019-12-31] MEDS: ZOSYN 3.375GM+NS 50ML 50 ML IV SCH (21:15)
[2019-12-31] MEDS ORDERED: FUROSEMIDE 40 MG TABLET ONE (21:34)
[2019-12-31] MEDS: PHARMACY COMMUNICATION MISC SCH (23:46)
[2020-01-01] VITALS (7 sets, daily range): BP systolic 132–178; BP diastolic 79–93
--- NOTE | 2020-01-01 00:45 | NUR ---
ADMISSION NOTE ADMIT TO ROOM 324 VIA W/C , AWAKE, ALERT, OX3, NO SOB, TEACH PATIENT PLAN OF CARE AND EXPECTED OUTCOME, PATIENT VERBALIZES UNDERSTANDING VIA TEACH BACK
[2020-01-01] MEDS ORDERED: MORPHINE SULFATE 2 MG/ML 1ML SYG ONE (01:31)
[2020-01-01] MEDS ORDERED: AZITHROMYCIN 500MG+NS 250ML 250 ML IV SCH (05:00)
[2020-01-01] MEDS: LEVOTHYROXINE 25 MCG TABLET PO SCH (05:30)
[2020-01-01] MEDS: INSULIN HUMULIN R 100 UNIT/ML 3ML SQ SCH ×4 (06:14→22:10)
[2020-01-01 08:05] LABS: BASOPHILS % (AUTO) 0.2 % (0.0-5.0); EOSINOPHILS % (AUTO) 0.6 % (0.0-8.0); HEMATOCRIT 28.2 % (42-54); LYMPHOCYTES % (AUTO) 13.9 % (21.0-51.0); MEAN CORPUSCULAR HEMOGLOBIN 27.9 pg (27.0-33.0); MEAN CORPUSCULAR HGB CONC 31.9 g/dL (32.0-36.0); MEAN CORPUSCULAR VOLUME 87.3 fL (79-99); NEUTROPHILS % (AUTO) 73.6 % (40.0-77.0); PLATELET COUNT (AUTO) 385 K/uL (130-400); RED BLOOD CELL COUNT(AUTO) 3.23 MIL/uL (4.50-6.20); RED CELL DISTRIBUTION WIDTH 12.3 % (11.0-15.5); WHITE BLOOD COUNT (AUTO) 10.1 K/uL (4.8-10.8)
[2020-01-01] MEDS ORDERED: TEMAZEPAM 7.5 MG CAPSULE PO PRN (08:15)
[2020-01-01] MEDS: PHARMACY COMMUNICATION MISC SCH ×2 (08:45→16:45)
--- NOTE | 2020-01-01 08:50 | NUR ---
i spoke to dr hennessy on the phone and informed of consult.
[2020-01-01 08:53] LABS: ALBUMIN 2.7 g/dL (3.5-5.0); BILIRUBIN,TOTAL 0.2 mg/dL (0.2-1.0); CREATININE 2.6 mg/dL (0.5-1.5); POTASSIUM 4.9 mmol/L (3.5-5.1); TOTAL PROTEIN, SERUM 8.6 g/dL (6.0-8.3)
--- NOTE | 2020-01-01 09:07 | NUR ---
i received call from lab of d-dimer of [phone]; this is consistent w/ previous d-dimer of [phone]
[2020-01-01] MEDS: ZOSYN 3.375GM+NS 50ML 50 ML IV SCH ×2 (09:43→21:57)
[2020-01-01] MEDS: ATORVASTATIN CALCIUM 20 MG TABLET PO SCH (09:44)
[2020-01-01] MEDS: ZINC SULFATE 220 CAPSULE PO SCH (09:44)
[2020-01-01] MEDS: FAMOTIDINE 20MG TAB 20 MG TAB PO SCH (09:44)
[2020-01-01] MEDS: LIDOCAINE 5% TOPICAL PATCH TP SCH (09:44)
[2020-01-01] MEDS: ASCORBIC ACID 500 MG TAB PO SCH (09:45)
[2020-01-01] MEDS: CARVEDILOL 12.5 MG TABLET PO SCH ×2 (09:45→21:59)
[2020-01-01] MEDS: METOLAZONE 2.5 MG TABLET PO SCH (09:46)
[2020-01-01] MEDS: FUROSEMIDE 40 MG TABLET PO SCH ×2 (09:46→21:58)
[2020-01-01] MEDS: ASPIRIN 81MG TAB.CHEW PO SCH (09:46)
[2020-01-01] MEDS: LORATADINE 10 MG TABLET PO SCH (09:46)
[2020-01-01] MEDS: HEPARIN SODIUM 5000UNIT/ML 1ML VIAL SQ SCH ×2 (10:01→22:08)
[2020-01-01] MEDS: MORPHINE SULFATE 2 MG/ML 1ML SYG IVP PRN (10:11)
[2020-01-01] MEDS: TRAMADOL HCL 50 MG TABLET PO PRN (11:59)
[2020-01-01 13:35] LABS: CRP QUANTITATIVE 187.6 mg/L (0.00-9.0)
--- NOTE | 2020-01-01 15:01 | NUR ---
I HAVE INFORMED AJ ONLINE COMMUNICATIONS MANAGER OF RESULTS OF MRI SHOWING POSSIBLE MYOLITIS IN LEFT HIP MUSCULATURE; HE STATED TO INFORM DR MONTAÑO; I CALLED AND LEFT A MESSAGE ON DR MONTAÑO'S PHONE.
--- NOTE | 2020-01-01 16:00 | NUR ---
DRESSINGS APPLIED TO EDDIE. FEET AT SITE OF UNINTACT SKIN; BOTH FEET WASHED WITH SOAP AND WATER FIRST THEN MEDIHONEY PAST APPLIED TO WOUNDS THEN 4X4 GAUZE AND KERLIX; PT HAS ABOUT A 2 INCH ROUND AREA OF TOP LAYER OF SKIN NOT IN PLACE ON LEFT SOLE OF FOOT THAT ALSO HAS A TMA, BUT THE SKIN WITHIN THE WOUND BED IS PINK AND DRY AND HEALING, IT DOES NOT APPEAR LIKE A NEW PROBLEM, THE NEW SKIN ALREADY HAS A TOUGH OUTER COVERING; ON THE OPPOSITE FOOT (RIGHT) PT'S WOUND IS A DRY CALLOUS THAT HAS THE SKIN INTACT WITH A BRUISE LIKE APPERANCE TO IT; NO DRAINAGE NOTED FROM EITHER AREA AND FOR THE MOST PART HEALTHY IN APPEARANCE PINK SURROUNDING TISSUE; PT CORIE. PROC WELL.
[2020-01-01] MEDS: HONEY 1 APPL/ML TUBE TP SCH (16:16)
[2020-01-01] MEDS: TRAZODONE HCL 50 MG TAB PO SCH (21:58)
[2020-01-01] MEDS: INSULIN GLARGINE 100 UNITS/ML 10 ML VIAL SQ SCH (22:09)
[2020-01-02] MEDS: MORPHINE SULFATE 2 MG/ML 1ML SYG IVP PRN (02:32)
[2020-01-02 04:00] VITALS: BP 141/81
[2020-01-02] MEDS: LEVOTHYROXINE 25 MCG TABLET PO SCH (07:22)
[2020-01-02] MEDS: INSULIN HUMULIN R 100 UNIT/ML 3ML SQ SCH ×4 (07:22→20:45)
[2020-01-02 07:50] LABS: BASOPHILS % (AUTO) 0.2 % (0.0-5.0); EOSINOPHILS % (AUTO) 0.4 % (0.0-8.0); HEMATOCRIT 27.8 % (42-54); LYMPHOCYTES % (AUTO) 9.5 % (21.0-51.0); MEAN CORPUSCULAR HEMOGLOBIN 28.3 pg (27.0-33.0); MEAN CORPUSCULAR VOLUME 88.3 fL (79-99); MONOCYTES % (AUTO) 9.9 % (3.0-13.0); NEUTROPHILS % (AUTO) 79.4 % (40.0-77.0); PLATELET COUNT (AUTO) 343 K/uL (130-400); RED BLOOD CELL COUNT(AUTO) 3.15 MIL/uL (4.50-6.20); RED CELL DISTRIBUTION WIDTH 12.5 % (11.0-15.5); WHITE BLOOD COUNT (AUTO) 9.3 K/uL (4.8-10.8)
[2020-01-02 08:12] VITALS: BP 134/67
[2020-01-02 08:15] LABS: B-TYPE NATRIURETIC PEPTIDE 807 pg/mL (0-100)
[2020-01-02 08:27] LABS: CREATININE 2.4 mg/dL (0.5-1.5); POTASSIUM 4.8 mmol/L (3.5-5.1)
[2020-01-02] MEDS: CARVEDILOL 12.5 MG TABLET PO SCH ×2 (08:53→20:46)
[2020-01-02] MEDS: TRAMADOL HCL 50 MG TABLET PO PRN (08:53)
[2020-01-02] MEDS: LORATADINE 10 MG TABLET PO SCH (08:54)
[2020-01-02] MEDS: METOLAZONE 2.5 MG TABLET PO SCH (08:54)
[2020-01-02] MEDS: FUROSEMIDE 40 MG TABLET PO SCH ×2 (08:54→20:47)
[2020-01-02] MEDS: ASCORBIC ACID 500 MG TAB PO SCH (08:54)
[2020-01-02] MEDS: ASPIRIN 81 MG EC TAB PO SCH (08:54)
[2020-01-02] MEDS: ZINC SULFATE 220 CAPSULE PO SCH (08:54)
[2020-01-02] MEDS: HEPARIN SODIUM 5000UNIT/ML 1ML VIAL SQ SCH ×2 (08:55→20:44)
[2020-01-02] MEDS: ZOSYN 3.375GM+NS 50ML 50 ML IV SCH ×2 (08:56→20:45)
[2020-01-02] MEDS: LIDOCAINE 5% TOPICAL PATCH TP SCH (08:56)
[2020-01-02] MEDS: FAMOTIDINE 20MG TAB 20 MG TAB PO SCH (09:00)
[2020-01-02 11:23] VITALS: BP 153/68
[2020-01-02] MEDS: METRONIDAZOLE 500MG/100ML BAG 100 ML IV SCH ×2 (14:00→22:52)
[2020-01-02 16:24] VITALS: BP 130/72
--- NOTE | 2020-01-02 16:26 | NUR ---
[facility] consult Patient already has Dr. Matrinez consulting and providing wound care orders. No further [facility] recommendations required at this time.
--- NOTE | 2020-01-02 16:52 | NUR ---
REFERRAL IN PROCESS CONSENT FOR [email or web address] REC FROM SPOUSE & FROM PATIENT VIA PHONS, SEPARATELY., PKT SENT TO [employer] DATA SCREEN SCREEN, COVID TEST NEG & REV CODES, MOT & COVID FORM READY FOR SIGNATURE
--- NOTE | 2020-01-02 17:49 | NUR ---
CM Note: [facility] pending approval Faxed covid assessment transfer form and covid result to [facility]. Pt pending approval. EMS filled out pending to be faxed w/current date. MOT semi-filled out pending to be completed once pt has approval. Primary nurse aware. CM to cont to follow up.
[2020-01-02 20:00] VITALS: BP 141/78
[2020-01-02] MEDS: INSULIN GLARGINE 100 UNITS/ML 10 ML VIAL SQ SCH (20:45)
[2020-01-02] MEDS: ATORVASTATIN CALCIUM 20 MG TABLET PO SCH (20:46)
[2020-01-02] MEDS: TRAZODONE HCL 50 MG TAB PO SCH (20:48)
[2020-01-02 23:36] VITALS: BP 149/88
[2020-01-03 03:41] VITALS: BP 145/79
[2020-01-03] MEDS: INSULIN HUMULIN R 100 UNIT/ML 3ML SQ SCH ×4 (06:16→21:24)
[2020-01-03] MEDS: METRONIDAZOLE 500MG/100ML BAG 100 ML IV SCH ×3 (06:17→21:13)
[2020-01-03] MEDS: LEVOTHYROXINE 25 MCG TABLET PO SCH (06:18)
[2020-01-03 08:21] VITALS: BP 146/59
[2020-01-03] MEDS: HONEY 1 APPL/ML TUBE TP SCH (09:00)
[2020-01-03] MEDS: ASPIRIN 81 MG EC TAB PO SCH (11:32)
[2020-01-03] MEDS: FUROSEMIDE 40 MG TABLET PO SCH ×2 (11:33→21:13)
[2020-01-03] MEDS: CARVEDILOL 12.5 MG TABLET PO SCH ×2 (11:33→21:12)
[2020-01-03] MEDS: LORATADINE 10 MG TABLET PO SCH (11:34)
[2020-01-03] MEDS: FAMOTIDINE 20MG TAB 20 MG TAB PO SCH (11:34)
[2020-01-03] MEDS: METOLAZONE 2.5 MG TABLET PO SCH (11:35)
[2020-01-03] MEDS: ASCORBIC ACID 500 MG TAB PO SCH (11:35)
[2020-01-03] MEDS: ZINC SULFATE 220 CAPSULE PO SCH (11:35)
[2020-01-03] MEDS: LIDOCAINE 5% TOPICAL PATCH TP SCH (11:36)
[2020-01-03] MEDS: ZOSYN 3.375GM+NS 50ML 50 ML IV SCH ×2 (11:36→21:13)
[2020-01-03 11:56] VITALS: BP 144/78
--- NOTE | 2020-01-03 13:13 | NUR ---
MANDY Note: [facility] pending approval CM spoke to Shahnaz Tate, received order and clinicals late yesterday, already forwarded to insurance. pending approval at this time. MOT semi-filled pending to be completed once approved. EMS arranged and faxed for today, primary nurse to call [facility] once pt ready to dc. Primary nurse aware. CM to cont to follow up.
--- NOTE | 2020-01-03 15:59 | NUR ---
NUTRITION EDUCATION RD attempt at nutrition education. Pt refusal due to previous nutrition education. Pt claims has had comorbidities 20yrs plus. Pt lethargic at time of visit. Pt with no desire for nutritional intervention. RD recommend Osorio BID, 500mg Vitamin C (BID), 220mg ZnSO4 (QD). RD to continue to monitor. Please notify as additional nutrition concerns arise. Thank you.
[2020-01-03] MEDS: TRAMADOL HCL 50 MG TABLET PO PRN ×2 (16:18→23:53)
[2020-01-03 16:21] VITALS: BP 141/62
[2020-01-03] MEDS: HEPARIN SODIUM 5000UNIT/ML 1ML VIAL SQ SCH ×2 (16:33→21:21)
[2020-01-03 20:00] VITALS: BP 110/68
[2020-01-03] MEDS: GUAIFENESIN-DM 200/20 MG 10 ML PO SCH ×2 (21:00→21:26)
[2020-01-03] MEDS: ATORVASTATIN CALCIUM 20 MG TABLET PO SCH (21:12)
[2020-01-03] MEDS: TRAZODONE HCL 50 MG TAB PO SCH (21:12)
--- NOTE | 2020-01-03 21:15 | NUR ---
MEDS SHIFT ASSESSMENT DONE, PLEASE REFER TO CHART. DUE MEDS ADMINISTERED, TOLERATED WELL. KEPT RESTED AND COMFORTABLE. CALL LIGHT WITHIN REACH. WILL MONITOR PT. Addendum: 01/04/20 at 0204 by SEAN LANDIS RN RN Amended: Links added.
[2020-01-03] MEDS: INSULIN GLARGINE 100 UNITS/ML 10 ML VIAL SQ SCH (21:21)
--- NOTE | 2020-01-03 23:53 | NUR ---
PAIN PT COMPLAINTS OF GENERALIZED PAINS. PCP IN AND MONITORED VS STABLE. MEDICATED WITH ULTRAM PO. POSIITONED COMFORTABLY IN BED. CALL LIGHT WITHIN REACH. WILL RE-ASSESS PT. Addendum: 01/04/20 at 0150 by SEAN LANDIS RN RN Amended: Links added.
[2020-01-04] VITALS (7 sets, daily range): BP systolic 119–135; BP diastolic 64–84
--- NOTE | 2020-01-04 02:00 | NUR ---
ROUNDS PT RESTING WELL, FAIRLY ASLEEP. NO DISTRESS NOTED. KEPT RESTED AND COMFORTABLE. CALL LIGHT WITHIN REACH. WILL MONITOR PT.
[2020-01-04] MEDS: GUAIFENESIN-DM 200/20 MG 10 ML PO SCH ×2 (02:48→09:00)
[2020-01-04 03:43] LABS: BASOPHILS % (AUTO) 0.1 % (0.0-5.0); EOSINOPHILS % (AUTO) 0.8 % (0.0-8.0); HEMATOCRIT 29.9 % (42-54); LYMPHOCYTES % (AUTO) 12.6 % (21.0-51.0); MEAN CORPUSCULAR HEMOGLOBIN 27.7 pg (27.0-33.0); MEAN CORPUSCULAR HGB CONC 31.4 g/dL (32.0-36.0); MEAN CORPUSCULAR VOLUME 88.2 fL (79-99); MONOCYTES % (AUTO) 15.6 % (3.0-13.0); NEUTROPHILS % (AUTO) 69.3 % (40.0-77.0); PLATELET COUNT (AUTO) 278 K/uL (130-400); RED BLOOD CELL COUNT(AUTO) 3.39 MIL/uL (4.50-6.20); RED CELL DISTRIBUTION WIDTH 12.7 % (11.0-15.5); WHITE BLOOD COUNT (AUTO) 8.3 K/uL (4.8-10.8)
[2020-01-04 04:02] LABS: ALBUMIN 2.6 g/dL (3.5-5.0); BILIRUBIN,TOTAL 0.2 mg/dL (0.2-1.0); CREATININE 2.9 mg/dL (0.5-1.5); POTASSIUM 4.6 mmol/L (3.5-5.1); TOTAL PROTEIN, SERUM 8.7 g/dL (6.0-8.3)
[2020-01-04] MEDS: METRONIDAZOLE 500MG/100ML BAG 100 ML IV SCH ×3 (05:52→21:40)
[2020-01-04] MEDS: LEVOTHYROXINE 25 MCG TABLET PO SCH (05:52)
[2020-01-04] MEDS: INSULIN HUMULIN R 100 UNIT/ML 3ML SQ SCH ×4 (05:52→22:00)
--- NOTE | 2020-01-04 05:52 | NUR ---
MEDS PT AWAKENED FOR DUE MEDS. DENIES ANY CONCERNS AT THIS TIME. MEDICATED, TOLERATED WELL. KEPT RESTED. FOR MORE CARE.
--- NOTE | 2020-01-04 08:00 | NUR ---
PT OOB TO CHAIR, REVIEW PLAN OF CARE , DRSG TO HIS FEET NOTED. WANTING TO DRINK LOT OF WATER ,EXPLAIN LIMIT. INTAKE , DOES NOT UNDERSTAND WHY HE NEEDS ALL OF THE MEDICATION HIS ON . REVIEW CARE. AND CALL LIGHT IN REACH.
[2020-01-04] MEDS: METOLAZONE 2.5 MG TABLET PO SCH (08:54)
[2020-01-04] MEDS: FUROSEMIDE 40 MG TABLET PO SCH ×2 (08:54→21:40)
[2020-01-04] MEDS: LORATADINE 10 MG TABLET PO SCH (08:54)
[2020-01-04] MEDS: FAMOTIDINE 20MG TAB 20 MG TAB PO SCH (08:55)
[2020-01-04] MEDS: ZINC SULFATE 220 CAPSULE PO SCH (08:55)
[2020-01-04] MEDS: CARVEDILOL 12.5 MG TABLET PO SCH ×2 (08:55→21:41)
[2020-01-04] MEDS: ASPIRIN 81 MG EC TAB PO SCH (08:55)
[2020-01-04] MEDS: ASCORBIC ACID 500 MG TAB PO SCH (08:57)
[2020-01-04] MEDS: LIDOCAINE 5% TOPICAL PATCH TP SCH (09:10)
[2020-01-04] MEDS: HEPARIN SODIUM 5000UNIT/ML 1ML VIAL SQ SCH ×2 (09:11→21:53)
[2020-01-04] MEDS: TRAMADOL HCL 50 MG TABLET PO PRN ×2 (14:14→22:57)
[2020-01-04] MEDS ORDERED: GUAIFENESIN-DM 200/20 MG 10 ML PO PRN (14:15)
[2020-01-04] MEDS: ZOSYN 3.375GM+NS 50ML 50 ML IV SCH (17:42)
[2020-01-04] MEDS: ATORVASTATIN CALCIUM 20 MG TABLET PO SCH (21:40)
[2020-01-04] MEDS: TRAZODONE HCL 50 MG TAB PO SCH (21:40)
[2020-01-04] MEDS: INSULIN GLARGINE 100 UNITS/ML 10 ML VIAL SQ SCH (21:54)
[2020-01-05 04:04] VITALS: BP 132/69
[2020-01-05] MEDS: ZOSYN 3.375GM+NS 50ML 50 ML IV SCH ×2 (05:06→16:49)
[2020-01-05] MEDS: METRONIDAZOLE 500MG/100ML BAG 100 ML IV SCH ×3 (05:06→21:48)
[2020-01-05] MEDS: LEVOTHYROXINE 25 MCG TABLET PO SCH (05:12)
[2020-01-05 05:56] LABS: BASOPHILS % (AUTO) 0.1 % (0.0-5.0); EOSINOPHILS % (AUTO) 1.2 % (0.0-8.0); HEMATOCRIT 27.3 % (42-54); LYMPHOCYTES % (AUTO) 8.4 % (21.0-51.0); MEAN CORPUSCULAR HEMOGLOBIN 27.5 pg (27.0-33.0); MEAN CORPUSCULAR HGB CONC 31.9 g/dL (32.0-36.0); MEAN CORPUSCULAR VOLUME 86.4 fL (79-99); MONOCYTES % (AUTO) 11.5 % (3.0-13.0); NEUTROPHILS % (AUTO) 77.6 % (40.0-77.0); PLATELET COUNT (AUTO) 261 K/uL (130-400); RED BLOOD CELL COUNT(AUTO) 3.16 MIL/uL (4.50-6.20); RED CELL DISTRIBUTION WIDTH 12.4 % (11.0-15.5); WHITE BLOOD COUNT (AUTO) 8.4 K/uL (4.8-10.8)
[2020-01-05 06:50] LABS: ALBUMIN 2.4 g/dL (3.5-5.0); BILIRUBIN,TOTAL 0.2 mg/dL (0.2-1.0); POTASSIUM 4.5 mmol/L (3.5-5.1); TOTAL PROTEIN, SERUM 8.3 g/dL (6.0-8.3)
[2020-01-05] MEDS: INSULIN HUMULIN R 100 UNIT/ML 3ML SQ SCH ×4 (07:00→21:23)
[2020-01-05 07:30] VITALS: BP 124/73
--- NOTE | 2020-01-05 08:00 | NUR ---
PT ASSIT TO THE CHAIR, WEAK, GAIT, AND UNABLE TO STAND VERY WELL. STATED THAT HE HAS PROBLEMS WITH HIS KNEES AND STATED THAT HE FEEL WEAK . PT GET P.T. ASSISTANCE, . REVIEW CALL LIGHT IN REACH AND FALL RISK . HILLG TO HIS RT AND LT FOOT . IN PLACE, ORDER TO BE CHANGED EVERY OTHER DAY. JOSE HUYNH ON 01/04/2020
[2020-01-05] MEDS: CARVEDILOL 12.5 MG TABLET PO SCH ×2 (08:43→21:14)
[2020-01-05] MEDS: FUROSEMIDE 40 MG TABLET PO SCH ×2 (08:43→21:14)
[2020-01-05] MEDS: ASCORBIC ACID 500 MG TAB PO SCH (08:44)
[2020-01-05] MEDS: LORATADINE 10 MG TABLET PO SCH (08:44)
[2020-01-05] MEDS: ZINC SULFATE 220 CAPSULE PO SCH (08:45)
[2020-01-05] MEDS: FAMOTIDINE 20MG TAB 20 MG TAB PO SCH (08:45)
[2020-01-05] MEDS: METOLAZONE 2.5 MG TABLET PO SCH (08:45)
[2020-01-05] MEDS: ASPIRIN 81 MG EC TAB PO SCH (08:45)
[2020-01-05] MEDS: HEPARIN SODIUM 5000UNIT/ML 1ML VIAL SQ SCH ×2 (08:54→21:24)
[2020-01-05] MEDS: LIDOCAINE 5% TOPICAL PATCH TP SCH (08:55)
[2020-01-05] MEDS: HONEY 1 APPL/ML TUBE TP SCH (08:56)
[2020-01-05 11:00] VITALS: BP 108/64
--- NOTE | 2020-01-05 14:35 | NUR ---
CM Note: [facility] pending approval CM spoke to Shahnaz gutierrez/[facility], currently pending Dr Raphael to do P2P w/[facility]. Pt pending approval. MOT semi-filled pending to complete once approved. EMS arranged and faxed, primary nurse to call [facility] once pt ready to DC. Primary nurse aware. CM to cont to follow up.
[2020-01-05 16:00] VITALS: BP 116/72
[2020-01-05 19:41] VITALS: BP 126/69
[2020-01-05] MEDS: ATORVASTATIN CALCIUM 20 MG TABLET PO SCH (21:13)
[2020-01-05] MEDS: TRAZODONE HCL 50 MG TAB PO SCH (21:14)
[2020-01-05] MEDS: INSULIN GLARGINE 100 UNITS/ML 10 ML VIAL SQ SCH (21:22)
[2020-01-05 23:42] VITALS: BP 142/80
[2020-01-06] MEDS: MORPHINE SULFATE 2 MG/ML 1ML SYG IVP PRN (00:13)
[2020-01-06] MEDS: ZOSYN 3.375GM+NS 50ML 50 ML IV SCH ×2 (03:45→14:46)
[2020-01-06 04:14] VITALS: BP 119/65
[2020-01-06 05:02] LABS: BASOPHILS % (AUTO) 0.1 % (0.0-5.0); EOSINOPHILS % (AUTO) 0.7 % (0.0-8.0); HEMATOCRIT 25.6 % (42-54); LYMPHOCYTES % (AUTO) 11.7 % (21.0-51.0); MEAN CORPUSCULAR HEMOGLOBIN 27.6 pg (27.0-33.0); MEAN CORPUSCULAR VOLUME 86.2 fL (79-99); MONOCYTES % (AUTO) 14.1 % (3.0-13.0); NEUTROPHILS % (AUTO) 72.2 % (40.0-77.0); PLATELET COUNT (AUTO) 235 K/uL (130-400); RED BLOOD CELL COUNT(AUTO) 2.97 MIL/uL (4.50-6.20); RED CELL DISTRIBUTION WIDTH 12.6 % (11.0-15.5)
[2020-01-06 05:38] LABS: ALBUMIN 2.3 g/dL (3.5-5.0); BILIRUBIN,TOTAL 0.2 mg/dL (0.2-1.0); CREATININE 3.2 mg/dL (0.5-1.5); POTASSIUM 4.2 mmol/L (3.5-5.1); TOTAL PROTEIN, SERUM 7.9 g/dL (6.0-8.3)
[2020-01-06] MEDS: LEVOTHYROXINE 25 MCG TABLET PO SCH (06:27)
[2020-01-06] MEDS: METRONIDAZOLE 500MG/100ML BAG 100 ML IV SCH ×2 (06:27→14:45)
[2020-01-06] MEDS: INSULIN HUMULIN R 100 UNIT/ML 3ML SQ SCH ×3 (06:32→16:32)
[2020-01-06] MEDS: TRAMADOL HCL 50 MG TABLET PO PRN ×2 (06:32→14:47)
[2020-01-06 08:00] VITALS: BP 125/72
[2020-01-06] MEDS: ASCORBIC ACID 500 MG TAB PO SCH (08:49)
[2020-01-06] MEDS: ZINC SULFATE 220 CAPSULE PO SCH (08:49)
[2020-01-06] MEDS: ASPIRIN 81 MG EC TAB PO SCH (08:49)
[2020-01-06] MEDS: METOLAZONE 2.5 MG TABLET PO SCH (08:49)
[2020-01-06] MEDS: FUROSEMIDE 40 MG TABLET PO SCH (08:49)
[2020-01-06] MEDS: LORATADINE 10 MG TABLET PO SCH (08:49)
[2020-01-06] MEDS: FAMOTIDINE 20MG TAB 20 MG TAB PO SCH (08:50)
[2020-01-06] MEDS: LIDOCAINE 5% TOPICAL PATCH TP SCH (08:50)
[2020-01-06] MEDS: CARVEDILOL 12.5 MG TABLET PO SCH (08:50)
[2020-01-06] MEDS: HEPARIN SODIUM 5000UNIT/ML 1ML VIAL SQ SCH (08:51)
--- NOTE | 2020-01-06 09:53 | NUR ---
CM Note: [facility] approval CM spoke to Kaitlin gutierrez/Ellis, verbalized pt has approval for [facility]. Informed Shahnaz gutierrez/Carlos, pending call back to confirm approval. Pt pending acceptance. Primary nurse aware. CM to cont to follow up.
--- NOTE | 2020-01-06 10:00 | NUR ---
CM Note: [facility] acceptance CM spoke to Shahnaz Taet, pt has acceptance. MOT filled out, pending MD and house super to sign. EMS arranged and faxed today, primary nurse to call [facility] once pt ready to DC. Primary nurse aware. CM to cont to follow up.
[2020-01-06 11:00] VITALS: BP_SYST 114; BP_SYST 127; BP_DIAS 69; BP_DIAS 88
[2020-01-06 16:00] VITALS: BP 138/68
--- NOTE | 2020-01-06 16:00 | NUR ---
Called to provide report to [facility]. Harris, nurse receiving patient is currently discharging a patient and will call me back with report.
--- NOTE | 2020-01-06 16:30 | NUR ---
Provided report to Kimberly Hansen LVN at [facility] [employer].
--- NOTE | 2020-01-06 17:45 | NUR ---
Discharge instructions, continued medications and treatment plan for continuation of daily wound care reviewed with patient. Patient verbalized understanding. Both PIV's to Rt arm left in place as IV antibiotics will be due this evening. Patient escorted by stretcher via EMS employees to transport to [facility]. Family notified of transfer.
[2020-02-07] MEDS ORDERED: pepcid PO (12:07)
[2020-02-07] MEDS ORDERED: CARV25TA PO (12:07)
== END 2020-01-06 17:45 | DRG 871 ==
LOC: EDH 22:10 → EDHIP 12-30 02:59 → 3DH 01-01 00:39 → 3BH 01-04 20:36 → UNDODISIN 01-06 17:45
PROVIDERS: ADMIT Internal Medicine; ATTEND Internal Medicine
DX: A41.9 Sepsis, unspecified organism (principal); J18.9 Pneumonia, unspecified organism; L03.116 Cellulitis of left lower limb; Z68.41 Body mass index [BMI] 40.0-44.9, adult; N17.9 Acute kidney failure, unspecified; I42.9 Cardiomyopathy, unspecified; I13.0 Hypertensive heart and chronic kidney disease with heart failure and stage 1 through stage 4 chronic kidney disease, or unspecified chronic kidney disease; E87.1 Hypo-osmolality and hyponatremia; M86.8X7 Other osteomyelitis, ankle and foot; T87.89 Other complications of amputation stump; E11.621 Type 2 diabetes mellitus with foot ulcer; M60.9 Myositis, unspecified; Z20.828 Contact with and (suspected) exposure to other viral communicable diseases; I45.10 Unspecified right bundle-branch block; N18.9 Chronic kidney disease, unspecified; E03.9 Hypothyroidism, unspecified; E11.22 Type 2 diabetes mellitus with diabetic chronic kidney disease; E11.42 Type 2 diabetes mellitus with diabetic polyneuropathy; L97.519 Non-pressure chronic ulcer of other part of right foot with unspecified severity; L97.529 Non-pressure chronic ulcer of other part of left foot with unspecified severity; M47.816 Spondylosis without myelopathy or radiculopathy, lumbar region; Y83.5 Amputation of limb(s) as the cause of abnormal reaction of the patient, or of later complication, without mention of misadventure at the time of the procedure; I50.9 Heart failure, unspecified; J40 Bronchitis, not specified as acute or chronic; E11.51 Type 2 diabetes mellitus with diabetic peripheral angiopathy without gangrene; E11.69 Type 2 diabetes mellitus with other specified complication; I25.10 Atherosclerotic heart disease of native coronary artery without angina pectoris; E87.5 Hyperkalemia; E11.610 Type 2 diabetes mellitus with diabetic neuropathic arthropathy; E66.01 Morbid (severe) obesity due to excess calories; Z89.432 Acquired absence of left foot; Z89.421 Acquired absence of other right toe(s); Z83.3 Family history of diabetes mellitus; Z91.81 History of falling; Z79.899 Other long term (current) drug therapy; Z79.4 Long term (current) use of insulin; Z79.82 Long term (current) use of aspirin
CPT/HCPCS: 0099U; 36415; 71045; 72148; 73502; 73718; 73721; 74176; 80048; 80053; 80061; 82550; 82728; 82948; 83036; 83605; 83615; 83874; 83880; 84145; 84484; 85025; 85378; 85610; 85730; 86140; 87040; 87804; 93005; 93306; 93356; 93970; 97039; G0378; J0456; J0696; J1644; J1815; J2405; J2543; J3490; J7030; U0003

== ENCOUNTER 2020-02-08 05:42 | Day surgery (SDC) | payer OTHER, MEDICARE ==
[2020-02-07 06:12] VITALS: BP 165/83
[2020-02-07 13:25] LABS: BASOPHILS % (AUTO) 0.3 % (0.0-5.0); HEMATOCRIT 26.8 % (42-54); LYMPHOCYTES % (AUTO) 25.8 % (21.0-51.0); MEAN CORPUSCULAR HEMOGLOBIN 28.9 pg (27.0-33.0); MEAN CORPUSCULAR HGB CONC 31.3 g/dL (32.0-36.0); MEAN CORPUSCULAR VOLUME 92.1 fL (79-99); MONOCYTES % (AUTO) 9.8 % (3.0-13.0); NEUTROPHILS % (AUTO) 55.2 % (40.0-77.0); PLATELET COUNT (AUTO) 174 K/uL (130-400); RED BLOOD CELL COUNT(AUTO) 2.91 MIL/uL (4.50-6.20); RED CELL DISTRIBUTION WIDTH 14.8 % (11.0-15.5); WHITE BLOOD COUNT (AUTO) 3.3 K/uL (4.8-10.8)
[2020-02-07 13:40] LABS: INR 0.9 (0.85-1.15); PARTIAL THROMBOPLASTIN TIME 26.9 SEC (26.3-35.5); PROTHROMBIN TIME 9.8 SEC (9.6-11.6)
[2020-02-07 14:00] LABS: CREATININE 1.7 mg/dL (0.5-1.5); POTASSIUM 5.2 mmol/L (3.5-5.1)
--- NOTE | 2020-02-07 14:18 | NUR ---
REPORT CALLED MIKI NAGY WITH DR CAMPBELL AND INFORME[employer] OF ABNORMAL CBC AND BMP. MD WILL STILL PROCEED.
[~2020-02-08] VITALS: Ht 175.3 cm; Wt 121.9 kg
[2020-02-08] VITALS (10 sets, daily range): BP systolic 125–151; BP diastolic 73–87
[~2020-02-08 05:42] MED LIST changes: -ASPI-556 PO; -ATOR20TA65 PO; -BISA5TAB12 PO; -CARV12.511 PO; +CARV25TA PO; -FAMO40TA7 PO; -LEVO25TA9 PO; -LORA10CA9 PO; +SODIUM CHLORIDE 0.9% 500ML 500 ML IV SCH; -TRAZ-185 PO; -[UNRECOGNIZED DRUG - CODE] PO; +pepcid PO
[2020-02-08] MEDS ORDERED: CEFAZOLIN SODIUM 1 GM VIAL IVP SCH (06:00)
[2020-02-08] MEDS ORDERED: SODIUM CHLORIDE 0.9% 1000ML 1,000 ML IV ONE (06:14)
[2020-02-08 06:15] LABS: BASOPHILS % (AUTO) 0.3 % (0.0-5.0); EOSINOPHILS % (AUTO) 8.6 % (0.0-8.0); HEMATOCRIT 26.7 % (42-54); LYMPHOCYTES % (AUTO) 30.5 % (21.0-51.0); MEAN CORPUSCULAR HEMOGLOBIN 28.3 pg (27.0-33.0); MEAN CORPUSCULAR HGB CONC 31.1 g/dL (32.0-36.0); MEAN CORPUSCULAR VOLUME 91.1 fL (79-99); MONOCYTES % (AUTO) 11.2 % (3.0-13.0); NEUTROPHILS % (AUTO) 48.4 % (40.0-77.0); PLATELET COUNT (AUTO) 199 K/uL (130-400); RED BLOOD CELL COUNT(AUTO) 2.93 MIL/uL (4.50-6.20); RED CELL DISTRIBUTION WIDTH 14.6 % (11.0-15.5); WHITE BLOOD COUNT (AUTO) 3.8 K/uL (4.8-10.8)
[2020-02-08] MEDS ORDERED: FAMO40TA75 PO (06:32)
--- NOTE | 2020-02-08 07:19 | NUR ---
lab Dr. Brown notified of low HH 8.3/ .7,
[2020-02-08] MEDS ORDERED: CEFAZOLIN SODIUM 1 GM VIAL ONE (07:25)
[2020-02-08] MEDS ORDERED: BUPIVACAINE/PF 0.25% 30ML VIAL IJ ONE (07:25)
[2020-02-08] MEDS ORDERED: MIDAZOLAM HCL 1 MG/ML 2ML VIAL ONE ×2 (07:26→08:56)
[2020-02-08] MEDS ORDERED: IODIXANOL 320 MG/ML 100 ML VIAL ONE (07:26)
[2020-02-08] MEDS ORDERED: LIDOCAINE HCL 1% MDV 50ML VIAL ONE (07:26)
[2020-02-08] MEDS ORDERED: MEPERIDINE-PF 25 MG/ML SYG ONE ×2 (07:26→08:55)
[2020-02-08] MEDS ORDERED: THROMBIN-JMI 5000 UNIT/VIAL TP ONE (10:25)
[2020-02-08] MEDS ORDERED: ACETAMINOPHEN-CODEINE 300/30MG TAB PO PRN (11:15)
[2020-02-08] MEDS ORDERED: TRAM50TA4 PO (11:18)
--- NOTE | 2020-02-08 13:29 | NUR ---
report report given Josue Brody RN to resume care of patient . Left upper chest pressure dressing dry and intact, no bleeding or hematoma to site
== END 2020-02-08 16:57 | disposition home or self-care (01) ==
LOC: DAH 05:42
PROVIDERS: ATTEND Internal Medicine Cardiovascular Disease
DX: I25.5 Ischemic cardiomyopathy (principal); I45.10 Unspecified right bundle-branch block; E11.22 Type 2 diabetes mellitus with diabetic chronic kidney disease; I13.0 Hypertensive heart and chronic kidney disease with heart failure and stage 1 through stage 4 chronic kidney disease, or unspecified chronic kidney disease; N18.3 Chronic kidney disease, stage 3 (moderate); E11.51 Type 2 diabetes mellitus with diabetic peripheral angiopathy without gangrene; I50.22 Chronic systolic (congestive) heart failure; I25.10 Atherosclerotic heart disease of native coronary artery without angina pectoris; E78.5 Hyperlipidemia, unspecified; Z89.422 Acquired absence of other left toe(s); Z89.412 Acquired absence of left great toe; Z89.421 Acquired absence of other right toe(s); Z79.899 Other long term (current) drug therapy; Z79.84 Long term (current) use of oral hypoglycemic drugs; Z79.4 Long term (current) use of insulin; Z79.01 Long term (current) use of anticoagulants
CPT/HCPCS: 33225; 33249; 36415 ×2; 71045; 80048; 82948 ×2; 85025 ×2; 85610; 85730; 86850; 86900; 86901; 93005; A4215; A4216; A4221; A4222; A4223 ×2; A4606; A4663; C1769 ×4; C1882; C1895 ×2; C1900; J0690; J2175 ×2; J2250 ×2; J3490 ×3; J7030 ×2; Q9967; 99156; 99157